=== PATIENT | female | born 1940 | race Caucasian/White ===

== ENCOUNTER 2016-07-10 05:28 | Emergency (ER) | payer MEDICARE ==
[~2016-07-10] VITALS: Ht 162.6 cm; Wt 62.0 kg
[~2016-07-10 05:28] MED LIST: AMLO10 PO; ARTI3.5O EACH EYE; ATEN25TA PO; Artificial Tears Opth Soln EACH EYE; COMMODE 3-IN-11 MIS; COUM2.5T PO; GETGO ROLLING W1 MI1; HYDR10TA23 PO; IBRU1CAP PO; LIDO5DIS35 TD; LIPI10TA PO; LISI40TA PO; NEUR300C PO; PANT40TA3 PO; SPIRCAP INH; SYMB160A INH; VENTAER INH; WHEEMIS3; shower chair
[2016-07-10 05:29] VITALS: BP 139/85; PULSE 108; RESP 16; TEMP 97.8; O2SAT 96
[2016-07-10] MEDS ORDERED: MORPHINE SULFATE 4 MG/ML INJ IV PUSH ONE (06:00)
[2016-07-10] MEDS ORDERED: ONDANSETRON HCL 4 MG/2 ML VIAL IV PUSH ONE (06:00)
[2016-07-10 06:27] LABS: BASOPHIL % 0.7 % (0.0-2.0); EOSINOPHIL # 0.1 TH/MM3 (0-0.4); EOSINOPHIL % 1.5 % (0.0-4.0); HEMATOCRIT 32.5 % (35.0-46.0); HEMO FLAGS DIFF FINAL; LYMPH % 9.1 % (9.0-44.0); LYMPHOCYTE # 0.6 TH/MM3 (1.0-4.8); MEAN CELL VOLUME 88.5 FL (80.0-100.0); MEAN CORPUSCULAR HEMOGLOBIN 29.1 PG (27.0-34.0); MEAN CORPUSCULAR HGB CONC 32.9 % (32.0-36.0); MONO % 12.5 % (0.0-8.0); NEUT % 76.2 % (16.0-70.0); PLATELET COUNT 154 TH/MM3 (150-450); RED BLOOD COUNT 3.68 MIL/MM3 (4.00-5.30); RED CELL DISTRIBUTION WIDTH 15.4 % (11.6-17.2); WHITE BLOOD COUNT 6.6 TH/MM3 (4.0-11.0)
[2016-07-10 06:28] LABS: PROTHROMBIN TIME - PATIENT 99.4 SEC (9.8-11.6)
--- NOTE | 2016-07-10 06:28 | PD ---
HPI Chief Complaint: Pain: Acute or Chronic Time Seen by Provider: 06:08 Travel History International Travel<30 days: No Contact w/Intl Traveler<30days: No Traveled to known affect area: No History of Present Illness HPI 75-year-old white female presents to emergency department accompanied by her for evaluation of lower back pain with radiation into her right leg. The patient just recently was discharged from [facility] after having a stroke involving left sided paralysis. She states that she feels she has caused her back pain by performing more vigorous physical therapy over the last few days. She denies any direct trauma. She states that she has not been ill in the last few days. She had recently suffered a stroke last month of her right middle cerebral artery. She is visiting from out of town. Patient states that she has had back pain with sciatica in the past. She denies any fever or chills. No nausea vomiting. No urinary symptoms. She does make note that her lips were dry and she noticed bleeding from her upper lip. She also has had easy bruising. She is currently taking Coumadin. PFSH Past Medical History Narrative Medical PVD, atrial fibrillation, lymphoma, DM, HDL, HTN, COPD, admitted 05/27/16 - for acute large MCA infarct Arthritis: Yes (generalized) Asthma: No Autoimmune Disease: No Heart Rhythm Problems: Yes (Afib) Cancer: Yes (non-hodgkins lymphoma) Cardiovascular Problems: Yes High Cholesterol: Yes Chemotherapy: Yes Chest Pain: No Congestive Heart Failure: No COPD: Yes Cerebrovascular Accident: Yes Diabetes: Yes Diminished Hearing: Yes ([place]) Endocrine: Yes Genitourinary: Yes Hypertension: Yes Immune Disorder: No Implanted Vascular Access Dvce: Yes (CHEMO PORT) Kidney Stones: No Musculoskeletal: Yes Neurologic: Yes Psychiatric: No Reproductive: No Respiratory: Yes Migraines: No Radiation Therapy: No Renal Failure: No Seizures: No Sleep Apnea: No Thyroid Disease: No Tetanus Vaccination: < 5 Years Menopausal: Yes Ovarian Cysts: Yes Past Surgical History Narrative Surgical PVD with stents in the lower legs Other Surgery: Yes (STENTS IN LEG) Social History Alcohol Use: Yes (OCCASIONALLY) Tobacco Use: No (QUIT 02/2009) Substance Use: No Allergies-Medications (Allergen,Severity, Reaction): Coded Allergies: *MDRO Multi-Drug Resistant Organism (Verified Adverse Reaction, Unknown, ) MRSA PCR screen POSITIVE - 05/27/16; MRSA (urine-06/11/16) Reported Meds & Prescriptions Reported Meds & Active Scripts Active Lortab (Hydrocodone-Acetaminophen) 5-325 Mg Tab 1 Tab PO Q6H PRN Macrobid (Nitrofurantoin Monoh/Nitrofur Macro) 100 Mg Cap 100 Mg PO BID Spiriva Handihaler (Tiotropium Inh) 18 Mcg Cap 18 Mcg INH DAILY 30 Days Pantoprazole (Pantoprazole Sodium) 40 Mg Tab 40 Mg PO DAILY 30 Days Lidoderm Patch 12 HR (Lidocaine) 5% Patch 1 Patch TD DAILY 30 Days Neurontin (Gabapentin) 300 Mg Cap 300 Mg PO HS 30 Days Symbicort Inh (Budesonide/Formoterol Fumarate) 160-4.5 Mcg/Act Aero 2 Puff INH BID 30 Days Lipitor (Atorvastatin Calcium) 10 Mg Tab 10 Mg PO HS 30 Days Norvasc (Amlodipine Besylate) 10 Mg Tab 10 Mg PO DAILY 30 Days Ventolin Hfa 18 GM Inh (Albuterol Sulfate) 90 Mcg/Act Aer 1 Puff INH Q4H PRN 30 Days [shower chair] Ea Wheelchair (Device) 1 Mis Mis 1 Ea .ROUTE DIRECTED Commode 3-in-1 (Device) 1 Mis Mis 1 Ea .ROUTE DIRECTED Walker Rolling/GetGo (Device) 1 Mis Mis 1 Ea .ROUTE DIRECTED Coumadin (Warfarin) 2.5 Mg Tab 2.5 Mg PO DAILY@16 Akwa Tears Opth Ointment (Artificial Tears) 2-15-83% Oint 1 Applic EACH EYE Q12HR Reported Imbruvica (Ibrutinib) 140 Mg Cap 1 Cap PO Review of Systems Except as stated in HPI: all other systems reviewed are Neg Physical Exam Narrative GENERAL: Well-developed, well-nourished in no apparent distress. Nontoxic appearing. HEAD: Normocephalic, atraumatic. EYES: Pupils equal round and reactive. Extraocular motions intact. Patient's conjunctiva are somewhat pale and I question some mild icterus. No injection or drainage. ENT: Nose clear. Throat without erythema, tonsillar hypertrophy or exudate. Uvula midline. Airway patent. NECK: Trachea midline. Supple, nontender, moves head freely. No central bony tenderness or spasm. CARDIOVASCULAR: Regular rate and rhythm without murmurs, gallops, or rubs. RESPIRATORY: Clear to auscultation. Breath sounds equal bilaterally. No wheezes , rales, or rhonchi. GASTROINTESTINAL: Abdomen soft, non-tender, nondistended. No hepato-splenomegaly , or palpable masses. No guarding. EXTREMITIES: No clubbing, cyanosis, or edema. No joint tenderness. BACK: Patient has tenderness in the right lower lumbar right sciatic notch area. Without deformity. No flank tenderness. No gross spasm. She has intact gross sensation. NEUROLOGICAL: Awake, alert and oriented x 3 .Cranial nerves grossly intact. Patient has limited mobility with the left upper arm as well as a left lower leg. Skin: The patient has multiple areas of bruising in various stages of healing. Patient does have slight jaundice appearing skin Data Data Last Documented VS Vital Signs Date Time Temp Pulse Resp B/P Pulse Ox O2 Delivery O2 Flow Rate FiO2 07/10/16 06:43 107 16 167/78 94 Room Air 07/10/16 05:29 97.8 Orders Complete Blood Count With Diff (07/10/16 05:54) Comprehensive Metabolic Panel (07/10/16 05:54) Prothrombin Time / Inr (Pt) (07/10/16 05:54) Ua Includes Microscopic (07/10/16 05:54) Iv Access Insert/Monitor (07/10/16 05:54) Ondansetron Inj (Zofran Inj) (07/10/16 06:00) Morphine Inj (Morphine Inj) (07/10/16 06:00) Spine, Lumbar - Ltd (Ap & Lat) (07/10/16 05:54) Ceftriaxone Inj (Rocephin Inj) (07/10/16 07:00) Labs Laboratory Tests Test 07/10/16 07/10/16 06:00 06:40 White Blood Count 6.6 TH/MM3 Red Blood Count 3.68 MIL/MM3 Hemoglobin 10.7 GM/DL Hematocrit 32.5 % Mean Corpuscular Volume 88.5 FL Mean Corpuscular Hemoglobin 29.1 PG Mean Corpuscular Hemoglobin 32.9 % Concent Red Cell Distribution Width 15.4 % Platelet Count 154 TH/MM3 Mean Platelet Volume 11.1 FL Neutrophils (%) (Auto) 76.2 % Lymphocytes (%) (Auto) 9.1 % Monocytes (%) (Auto) 12.5 % Eosinophils (%) (Auto) 1.5 % Basophils (%) (Auto) 0.7 % Neutrophils # (Auto) 5.0 TH/MM3 Lymphocytes # (Auto) 0.6 TH/MM3 Monocytes # (Auto) 0.8 TH/MM3 Eosinophils # (Auto) 0.1 TH/MM3 Basophils # (Auto) 0.0 TH/MM3 CBC Comment DIFF FINAL Differential Comment Prothrombin Time 99.4 SEC Prothromb Time International 8.2 RATIO Ratio Sodium Level 142 MEQ/L Potassium Level 4.5 MEQ/L Chloride Level 108 MEQ/L Carbon Dioxide Level 27.4 MEQ/L Anion Gap 7 MEQ/L Blood Urea Nitrogen 23 MG/DL Creatinine 1.52 MG/DL Estimat Glomerular Filtration 33 ML/MIN Rate Random Glucose 96 MG/DL Calcium Level 9.0 MG/DL Total Bilirubin 0.7 MG/DL Aspartate Amino Transf 28 U/L (AST/SGOT) Alanine Aminotransferase 30 U/L (ALT/SGPT) Alkaline Phosphatase 212 U/L Total Protein 7.0 GM/DL Albumin 3.5 GM/DL Urine Color YELLOW Urine Turbidity HAZY Urine pH 5.5 Urine Specific [place] 1.014 Urine Protein TRACE mg/dL Urine Glucose (UA) NEG mg/dL Urine Ketones NEG mg/dL Urine Occult Blood SMALL Urine Nitrite POS Urine Bilirubin NEG Urine Urobilinogen LESS THAN 2.0 MG/DL Urine Leukocyte Esterase MOD Urine RBC 6 /hpf Urine WBC 35 /hpf Urine Bacteria MANY /hpf Urine Mucus FEW /lpf MDM Medical Decision Making Medical Screen Exam Complete: Yes Emergency Medical Condition: Yes Medical Record Reviewed: Yes Interpretation(s) Lumbar spine: The patient has significant degenerative changes as well as scoliosis. She has prior grafting ever iliacs. Laboratory Tests Test 07/10/16 06:00 White Blood Count 6.6 TH/MM3 Red Blood Count 3.68 MIL/MM3 Hemoglobin 10.7 GM/DL Hematocrit 32.5 % Mean Corpuscular Volume 88.5 FL Mean Corpuscular Hemoglobin 29.1 PG Mean Corpuscular Hemoglobin 32.9 % Concent Red Cell Distribution Width 15.4 % Platelet Count 154 TH/MM3 Mean Platelet Volume 11.1 FL Neutrophils (%) (Auto) 76.2 % Lymphocytes (%) (Auto) 9.1 % Monocytes (%) (Auto) 12.5 % Eosinophils (%) (Auto) 1.5 % Basophils (%) (Auto) 0.7 % Neutrophils # (Auto) 5.0 TH/MM3 Lymphocytes # (Auto) 0.6 TH/MM3 Monocytes # (Auto) 0.8 TH/MM3 Eosinophils # (Auto) 0.1 TH/MM3 Basophils # (Auto) 0.0 TH/MM3 CBC Comment DIFF FINAL Differential Comment Prothrombin Time 99.4 SEC Prothromb Time International 8.2 RATIO Ratio Sodium Level 142 MEQ/L Potassium Level 4.5 MEQ/L Chloride Level 108 MEQ/L Carbon Dioxide Level 27.4 MEQ/L Anion Gap 7 MEQ/L Blood Urea Nitrogen 23 MG/DL Creatinine 1.52 MG/DL Estimat Glomerular Filtration 33 ML/MIN Rate Random Glucose 96 MG/DL Calcium Level 9.0 MG/DL Total Bilirubin 0.7 MG/DL Aspartate Amino Transf 28 U/L (AST/SGOT) Alanine Aminotransferase 30 U/L (ALT/SGPT) Alkaline Phosphatase 212 U/L Total Protein 7.0 GM/DL Albumin 3.5 GM/DL CBC & BMP Diagram 07/10/16 06:00 Differential Diagnosis MDM: High Differential diagnoses: AAA,Fracture, sprain, strain, HNP, nerve or vascular injury, pyelonephritis, spinal cord hematoma, hypercoagulable state, abnormal liver functions Narrative Course iv ACCESS IS OBTAINED. Routine laboratory tests sent for analysis. X-ray of the lumbar spine. The patient has had good response from 4 mg of morphine IV and 4 mg of Zofran IV. Patient's INR is 8.2. Remainder of the labs are pending. Diagnosis Primary Impression: Low back pain with right-sided sciatica Qualified Code: M54.41 - Acute right-sided low back pain with right-sided sciatica Additional Impressions: Warfarin-induced coagulopathy UTI (urinary tract infection) Qualified Code: N30.01 - Acute cystitis with hematuria Patient Instructions: Narcotic given in the ED, General Instructions Additional Instructions: Rest. Increase fluids. Macrobid and Lortab. Coumadin for 24 hours and get a repeat PT with INR Recheck with your doctor within the next 1-2 days. Med/Other Pt SpecificInfo: Prescription(s) given Scripts Hydrocodone-Acetaminophen (Lortab)5-325 Mg Tab1 Tab PO Q6H PRN (PAIN) #20 TAB Prov:Spenser Jacobs MD 07/10/16 Nitrofurantoin Monohydrate Macrocrystals (Macrobid)100 Mg Kun477 Mg PO BID #20 CAP Prov:Montserrat Keller MD 07/10/16 Disposition: 01 DISCHARGE HOME Condition: Stable Ramon Earl Jul 10, 2016 06:28
[2016-07-10 06:34] LABS: INTERNATIONAL NORMALIZED RATIO 8.2 RATIO
[2016-07-10 06:41] LABS: ALT (GPT) 30 U/L (10-53); ANION GAP 7 MEQ/L (5-15); AST (GOT) 28 U/L (15-37); BICARBONATE 27.4 MEQ/L (21.0-32.0); BLOOD UREA NITROGEN 23 MG/DL (7-18); CHLORIDE 108 MEQ/L (98-107); GLOMERULAR FILTRATION RATE 33 ML/MIN (>89); POTASSIUM 4.5 MEQ/L (3.5-5.1); SODIUM (NA) 142 MEQ/L (136-145)
[2016-07-10 06:43] VITALS: BP 167/78; PULSE 107; RESP 16; O2SAT 94
[2016-07-10 06:43] LABS: ALKALINE PHOSPHATASE 212 U/L (45-117); TOTAL BILIRUBIN ADULT 0.7 MG/DL (0.2-1.0)
--- NOTE | 2016-07-10 06:53 | RADRPT ---
EXAM DATE/TIME: 07/10/2016 06:24 [facility] COMPARISON: No previous studies available for comparison. INDICATIONS : Low back and bilateral leg pain for four days. MEDICAL HISTORY : Hypertension. Lymphoma. SURGICAL HISTORY : [place] ENCOUNTER: Initial ACUITY: 4 - 6 days PAIN SCORE: 10/10 LOCATION: Bilateral Back and leg FINDINGS: There is prominent right convex lumbar scoliosis. No evidence of spondylolisthesis. No fracture or de structive change is identified. Prominent degenerative changes are present with disc space narrowing most significantly at L3-4. Dense atherosclerotic calcification is noted and vascular stents are seen in the right iliac system. CONCLUSION: Scoliosis and prominent degenerative changes. No acute bony findings Denys Rebolledo MD on July 10, 2016 at 6:50 Board Certified Radiologist. This report was verified electronically.
[2016-07-10 06:57] LABS: BACTERIA, URINE MANY /hpf; BLOOD, URINE SMALL (NEG); GLUCOSE,URINE NEG (NEG); KETONE, URINE NEG (NEG); MUCUS URINE FEW /lpf (OCC); NITRITE,URINE POS (NEG); PH, URINE 5.5 (5.0-8.5); URINE COLOR YELLOW (YELLW/STRAW)
[2016-07-10] MEDS ORDERED: cefTRIAXone INJ 1,000 MG in SODIUM CHLORIDE 0.9% INJ 100 ML IV ONE (07:00)
[2016-07-10] MEDS ORDERED: HYDR-3533 PO ×2 (07:00→07:05)
[2016-07-10] MEDS ORDERED: MACR100C2 PO (07:00)
[2016-07-10] MEDS ORDERED: PHYTONADIONE 5 MG TAB PO ONE (07:15)
== END 2016-07-10 08:16 | disposition home or self-care (01) ==
LOC: NEPB 05:28
DX: M54.41 Lumbago with sciatica, right side (principal); Z79.01 Long term (current) use of anticoagulants; I48.91 Unspecified atrial fibrillation; E78.00 Pure hypercholesterolemia, unspecified; J44.9 Chronic obstructive pulmonary disease, unspecified; E11.9 Type 2 diabetes mellitus without complications; I10 Essential (primary) hypertension; Z86.73 Personal history of transient ischemic attack (TIA), and cerebral infarction without residual deficits
CPT/HCPCS: 72100; 80053; 81001; 85025; 85610; 96365; 96375; 99284; J0696; J2270; J2405

== ENCOUNTER 2016-07-14 10:38 | Emergency (ER) | payer MEDICARE ==
[~2016-07-14] VITALS: Ht 162.6 cm; Wt 61.0 kg
[~2016-07-14 10:38] MED LIST changes: -ATEN25TA PO; -Artificial Tears Opth Soln EACH EYE; +HYDR-3533 PO; -HYDR10TA23 PO; -LISI40TA PO; +MACR100C2 PO
[2016-07-14 10:42] VITALS: BP 117/67; PULSE 94; RESP 16; TEMP 98.4; O2SAT 98
--- NOTE | 2016-07-14 11:11 | PD ---
HPI Chief Complaint: Abnormal Results Time Seen by Provider: 10:57 Travel History International Travel<30 days: No Contact w/Intl Traveler<30days: No Traveled to known affect area: No History of Present Illness HPI The patient was seen and examined in the presence of the nurse. This patient was sent here from her neurologist office. Patient was seen here 4 days ago with right sided low back pain. She recently got out of rehabilitation or left- sided stroke with right sided weakness. She is on Coumadin and had an INR of 8.2 which was drawn 4 days ago. He sent her here to get a CT of the brain and abdomen and pelvis to rule out retroperitoneal hemorrhage and recheck INR. Patient's back pain is improved. She denies headache. No head injury. No alleviating factors. Duration of pain is one week PFSH Past Medical History Hx Anticoagulant Therapy: Yes Arthritis: Yes (generalized) Asthma: No Autoimmune Disease: No Heart Rhythm Problems: Yes (Afib) Cancer: Yes (non-hodgkins lymphoma) Cardiovascular Problems: Yes High Cholesterol: Yes Chemotherapy: Yes Chest Pain: No Congestive Heart Failure: No COPD: Yes Cerebrovascular Accident: Yes Diabetes: Yes Patient Takes Glucophage: No Diminished Hearing: Yes ([place]) Endocrine: Yes Gastrointestinal Disorders: No Genitourinary: Yes Headaches: No Hypertension: Yes Immune Disorder: No Implanted Vascular Access Dvce: Yes (CHEMO PORT) Kidney Stones: No Musculoskeletal: Yes Neurologic: Yes Psychiatric: No Reproductive: No Respiratory: Yes Migraines: No Radiation Therapy: No Renal Failure: No Seizures: No Sleep Apnea: No Thyroid Disease: No Tetanus Vaccination: Unknown ?: Not Menopausal: Yes Ovarian Cysts: Yes Past Surgical History Other Surgery: Yes (STENTS IN LEG) Social History Alcohol Use: Yes (OCCASIONALLY) Tobacco Use: No (QUIT 02/2009) Substance Use: No Allergies-Medications (Allergen,Severity, Reaction): Coded Allergies: *MDRO Multi-Drug Resistant Organism (Verified Adverse Reaction, Unknown, ) MRSA PCR screen POSITIVE - 05/27/16; MRSA (urine-06/11/16) Reported Meds & Prescriptions Reported Meds & Active Scripts Active Lortab (Hydrocodone-Acetaminophen) 5-325 Mg Tab 1 Tab PO Q6H PRN Macrobid (Nitrofurantoin Monoh/Nitrofur Macro) 100 Mg Cap 100 Mg PO BID Spiriva Handihaler (Tiotropium Inh) 18 Mcg Cap 18 Mcg INH DAILY 30 Days Pantoprazole (Pantoprazole Sodium) 40 Mg Tab 40 Mg PO DAILY 30 Days Neurontin (Gabapentin) 300 Mg Cap 300 Mg PO HS 30 Days Symbicort Inh (Budesonide/Formoterol Fumarate) 160-4.5 Mcg/Act Aero 2 Puff INH BID 30 Days Lipitor (Atorvastatin Calcium) 10 Mg Tab 10 Mg PO HS 30 Days Norvasc (Amlodipine Besylate) 10 Mg Tab 10 Mg PO DAILY 30 Days Ventolin Hfa 18 GM Inh (Albuterol Sulfate) 90 Mcg/Act Aer 1 Puff INH Q4H PRN 30 Days [shower chair] Ea Wheelchair (Device) 1 Mis Mis 1 Ea .ROUTE DIRECTED Commode 3-in-1 (Device) 1 Mis Mis 1 Ea .ROUTE DIRECTED Walker Rolling/GetGo (Device) 1 Mis Mis 1 Ea .ROUTE DIRECTED Coumadin (Warfarin) 2.5 Mg Tab 2.5 Mg PO DAILY@16 Akwa Tears Opth Ointment (Artificial Tears) 2-15-83% Oint 1 Applic EACH EYE Q12HR Reported Imbruvica (Ibrutinib) 140 Mg Cap 1 Cap PO Review of Systems General / Constitutional: No: Fever Eyes: No: Visual changes HENT: No: Headaches Cardiovascular: No: Chest Pain or Discomfort Respiratory: No: Shortness of Breath Gastrointestinal: No: Abdominal Pain Genitourinary: No: Dysuria Musculoskeletal: Positive: Weakness, Pain Skin: No Rash Neurologic: Positive: Weakness Psychiatric: No: Depression Endocrine: No: Polydipsia Hematologic/Lymphatic: No: Easy Bruising Physical Exam Narrative GENERAL: Pleasant elderly well-developed patient in no apparent distress. SKIN: Warm and dry. HEAD: Atraumatic. Normocephalic. EYES: Pupils equal and round. No scleral icterus. No injection or drainage. ENT: No nasal bleeding or discharge. Mucous membranes pink and moist. NECK: Trachea midline. No JVD. CARDIOVASCULAR: Regular rate and rhythm. No murmur appreciated. RESPIRATORY: No accessory muscle use. Clear to auscultation. Breath sounds equal bilaterally. GASTROINTESTINAL: Abdomen soft, non-tender, nondistended. Hepatic and splenic margins not palpable. MUSCULOSKELETAL: No obvious deformities. No clubbing. No cyanosis. No edema. NEUROLOGICAL: Awake and alert. No obvious cranial nerve deficits. Has some right sided weakness. Normal speech. PSYCHIATRIC: Appropriate mood and affect; insight and judgment normal. Data Data Last Documented VS Vital Signs Date Time Temp Pulse Resp B/P Pulse Ox O2 Delivery O2 Flow Rate FiO2 07/14/16 10:58 95 18 97 Room Air 07/14/16 10:42 98.4 117/67 Orders Iv Access Insert/Monitor (07/14/16 11:04) Complete Blood Count With Diff (07/14/16 11:04) Prothrombin Time / Inr (Pt) (07/14/16 11:04) Ct Brain W/O Iv Contrast(Rout) (07/14/16 ) Ct Abd/Pel W Iv Contrast(Rout) (07/14/16 ) Basic Metabolic Panel (Bmp) (07/14/16 11:04) Iodixanol 320 Inj (Rad Ct) (Visipaque 32 (07/14/16 12:39) Phytonadione (Mephyton) (07/14/16 13:30) Labs Laboratory Tests Test 07/14/16 11:25 White Blood Count 5.5 TH/MM3 Red Blood Count 3.14 MIL/MM3 Hemoglobin 9.3 GM/DL Hematocrit 28.1 % Mean Corpuscular Volume 89.4 FL Mean Corpuscular Hemoglobin 29.6 PG Mean Corpuscular Hemoglobin 33.1 % Concent Red Cell Distribution Width 14.6 % Platelet Count 153 TH/MM3 Mean Platelet Volume 10.8 FL Neutrophils (%) (Auto) 77.7 % Lymphocytes (%) (Auto) 6.2 % Monocytes (%) (Auto) 14.4 % Eosinophils (%) (Auto) 0.9 % Basophils (%) (Auto) 0.8 % Neutrophils # (Auto) 4.4 TH/MM3 Lymphocytes # (Auto) 0.3 TH/MM3 Monocytes # (Auto) 0.8 TH/MM3 Eosinophils # (Auto) 0.0 TH/MM3 Basophils # (Auto) 0.0 TH/MM3 CBC Comment DIFF FINAL Differential Comment Prothrombin Time 68.1 SEC Prothromb Time International 5.7 RATIO Ratio Sodium Level 145 MEQ/L Potassium Level 3.8 MEQ/L Chloride Level 111 MEQ/L Carbon Dioxide Level 25.9 MEQ/L Anion Gap 8 MEQ/L Blood Urea Nitrogen 28 MG/DL Creatinine 1.50 MG/DL Estimat Glomerular Filtration 34 ML/MIN Rate Random Glucose 135 MG/DL Calcium Level 8.7 MG/DL MDM Medical Decision Making Medical Screen Exam Complete: Yes Emergency Medical Condition: Yes Medical Record Reviewed: Yes Differential Diagnosis Super therapeutic INR, intracranial hemorrhage, anemia, sciatica Narrative Course I have reviewed the patient's electronic medical record. Reviewed the extensive workup from 4 days ago including lab studies and x-ray IV placed CBC shows some anemia with normal white count Metabolic profile shows creatinine of 1.5, chronic INR is 5.[address] shows evolving known stroke and suggested tiny amount of hemorrhage but not unexpected. I spoke with both radiologist Dr. William and neurologist Dr. Lainez. We reviewed these findings in detail. Dr. Lainez who sent the patient here looked at the CT scan and does not recommend FFP reversal. He recommends holding the Coumadin and giving him an oral dose of vitamin K now which we have done at his request. CT of abdomen and pelvis does not show any hemorrhage Dr. Lainez had wanted to rehospitalized and get her back into rehabilitation but the patient and the patient's did not want to do this. They have made arrangements to go back home to [place] tomorrow and they are to have an appointment with primary physician on Sunday and he is getting them into therapy. I specifically advise them to have the doctor check the INR on Sunday and they are not to take Coumadin until that time. understands that. Diagnosis Primary Impression: Warfarin-induced coagulopathy Additional Impression: Stroke Qualified Code: I63.511 - Cerebrovascular accident (CVA) due to occlusion of right middle cerebral artery Additional Instructions: Do not take Coumadin until your doctor rechecks INR Ask him to do this on Sunday when you are checked by him Do your best to avoid injury or fall as your blood is extra thin Med/Other Pt SpecificInfo: Other Disposition: 01 DISCHARGE HOME Condition: Stable Tono Junior MD Jul 14, 2016 11:11
[2016-07-14 11:37] LABS: AUTOMATED NEUTROPHIL # 4.4 TH/MM3 (1.8-7.7); BASOPHIL % 0.8 % (0.0-2.0); EOSINOPHIL % 0.9 % (0.0-4.0); HEMATOCRIT 28.1 % (35.0-46.0); HEMO FLAGS DIFF FINAL; LYMPH % 6.2 % (9.0-44.0); LYMPHOCYTE # 0.3 TH/MM3 (1.0-4.8); MEAN CELL VOLUME 89.4 FL (80.0-100.0); MEAN CORPUSCULAR HEMOGLOBIN 29.6 PG (27.0-34.0); MEAN CORPUSCULAR HGB CONC 33.1 % (32.0-36.0); MONO % 14.4 % (0.0-8.0); NEUT % 77.7 % (16.0-70.0); PLATELET COUNT 153 TH/MM3 (150-450); RED BLOOD COUNT 3.14 MIL/MM3 (4.00-5.30); RED CELL DISTRIBUTION WIDTH 14.6 % (11.6-17.2); WHITE BLOOD COUNT 5.5 TH/MM3 (4.0-11.0)
[2016-07-14 11:55] LABS: POTASSIUM 3.8 MEQ/L (3.5-5.1)
[2016-07-14 11:59] LABS: BICARBONATE 25.9 MEQ/L (21.0-32.0)
[2016-07-14 12:26] LABS: INTERNATIONAL NORMALIZED RATIO 5.7 RATIO; PROTHROMBIN TIME - PATIENT 68.1 SEC (9.8-11.6)
[2016-07-14] MEDS ORDERED: IODIXANOL 320 MG/ML 10 ML VIAL (for Rad CT) IV ONE (12:39)
--- NOTE | 2016-07-14 12:51 | RADHPO ---
EXAM DATE/TIME: 07/14/2016 12:21 [facility] COMPARISON: CT BRAIN W/O CONTRAST, May 27, 2016, 10:47. INDICATIONS: Recent stroke. General weakness. Evaluate for hemorrhage. RADIATION DOSE: 61.59 CTDIvol (mGy) MEDICAL HISTORY: Cerebrovascular disease. Diabetes mellitus type 2. Chronic obstructive pulmonary disease. Hypertensio n. Non-Hodgkin's lymphoma. SURGICAL HISTORY: None. ENCOUNTER: Initial ACUITY: 4 - 6 days PAIN SCALE: 0/10 LOCATION: Cranial TECHNIQUE: Multiple contiguous axial images were obtained of the head. Using automated exposure control and adj ustment of the mA and/or kV according to patient size, radiation dose was kept as low as reasonably a chievable to obtain optimal diagnostic quality images. FINDINGS: There is an evolving stroke in the right orbital frontal region. Very small amount of hemorrhage is seen in the deep thalamic region, not unexpected. The left hemisphere is unremarkable. Posterior fossa appears normal. CONCLUSION: Evolving stroke as described above. Arian William MD FACR on July 14, 2016 at 12:36 Board Certified Radiologist. This report was verified electronically.
--- NOTE | 2016-07-14 13:06 | RADHPO ---
EXAM DATE/TIME: 07/14/2016 12:28 [facility] COMPARISON: No previous studies available for comparison. INDICATIONS : Evaluate for retroperitoneal hemorrhage. General weakness. IV CONTRAST: 50 cc Visipaque (iodixanol) IV ORAL CONTRAST: No oral contrast ingested. RADIATION DOSE: 5.84 CTDIvol (mGy) MEDICAL HISTORY : Diabetes mellitus type 2. Chronic obstructive pulmonary disease. Cerebrovascular disease.Diabetes. N on-Hodgkins lymphoma. SURGICAL HISTORY : None. ENCOUNTER: Initial ACUITY: 3 days PAIN SCALE: 7/10 LOCATION: Diffuse abdomen. TECHNIQUE: Volumetric scanning of the abdomen and pelvis was performed. Using automated exposure control and ad justment of the mA and/or kV according to patient size, radiation dose was kept as low as reasonably achievable to obtain optimal diagnostic quality images. FINDINGS: LOWER LUNGS: The visualized lower lungs are clear. The heart is moderately enlarged. LIVER: Homogeneous density without lesion. There is no dilation of the biliary tree. No calcified gallston es. SPLEEN: Normal size without lesion. PANCREAS: Within normal limits. KIDNEYS: Kidneys are asymmetric in size with atrophic changes identified on the left. At least 3 simple cysts are identified in the left kidney. There is no evidence of hydronephrosis. ADRENAL GLANDS: Within normal limits. VASCULAR: Evaluate heavily calcified. Significant calcific atherosclerotic disease identified involving the aor tic branches. Calcified plaque is present throughout the proximal superior mesenteric artery. Iliac v essels are heavily calcified. Endovascular stents are identified in the right common and external nancy ac arteries. The left iliac vessels appear occluded. There is a right to left femoral-femoral bypass graft. BOWEL/MESENTERY: The stomach, small bowel, and colon demonstrate no acute abnormality. There is no free intraperitone al air or fluid. ABDOMINAL WALL: Within normal limits. RETROPERITONEUM: There is no evidence of retroperitoneal hemorrhage or hematoma. There are no suspicious masses. BLADDER: No wall thickening or mass. REPRODUCTIVE: Within normal limits. INGUINAL: There is no lymphadenopathy or hernia. MUSCULOSKELETAL: Degenerative changes are present throughout the lumbar spine. CONCLUSION: Advanced calcific atherosclerotic vascular disease. No evidence of retroperitoneal hematoma or acute process. Cardiomegaly. Ben Smith MD on July 14, 2016 at 12:45 Board Certified Radiologist. This report was verified electronically.
[2016-07-14] MEDS ORDERED: PHYTONADIONE 5 MG TAB PO ONE (13:30)
[2016-07-14 13:40] VITALS: BP 140/63
== END 2016-07-14 14:10 | disposition home or self-care (01) ==
LOC: PHED 10:38
DX: I63.511 Cerebral infarction due to unspecified occlusion or stenosis of right middle cerebral artery (principal); D68.8 Other specified coagulation defects; I48.91 Unspecified atrial fibrillation; E78.00 Pure hypercholesterolemia, unspecified; E11.9 Type 2 diabetes mellitus without complications
CPT/HCPCS: 70450; 74177; 80048; 85025; 85610; Q9967

== ENCOUNTER 2016-07-15 06:19 | Inpatient (IN) | payer MEDICARE ==
[2016-07-15] VITALS (7 sets, daily range): BP systolic 114–142; BP diastolic 57–78; PULSE 91–102; RESP 16–20; TEMP 97.8–99.4; O2SAT 94–98
[~2016-07-15 06:19] MED LIST changes: -LIDO5DIS35 TD
--- NOTE | 2016-07-15 07:10 | PD ---
HPI Chief Complaint: General Weakness Time Seen by Provider: 06:37 Travel History International Travel<30 days: No Contact w/Intl Traveler<30days: No Traveled to known affect area: No History of Present Illness HPI The patient is a 75-year-old female who was seen here yesterday because of right sided low back pain. She is on Coumadin and had an INR of 8.25 days ago and the INR was 5.[address] of the brain showed an evolving stroke in the right orbital frontal region and a very small amount of hemorrhage was seen in the deep thalamic region. The conclusion was evolving stroke. Dr. Dolly Live , who saw the patient in this emergency department discussed the patient with Dr. William from radiology and Dr. Negro Lainez from neurology and FFP was not recommended, only discontinuing the Coumadin. Admission was recommended but the patient wanted to go to [place] and left. This morning the patient cannot walk. After she left rehabilitation she could walk slightly but cannot walk at all today. She states the reason she cannot walk his pain below her right knee. It is difficult to determine whether this is pain or weakness on examination but the patient insists that his pain that she cannot use her right leg effectively. A CT scan of the abdomen/pelvis was done and showed no hemorrhage, specifically no retroperitoneal hemorrhage. PFSH Past Medical History Hx Anticoagulant Therapy: Yes Arthritis: Yes (generalized) Asthma: No Autoimmune Disease: No Heart Rhythm Problems: Yes (Afib) Cancer: Yes (non-hodgkins lymphoma) Cardiovascular Problems: Yes High Cholesterol: Yes Chemotherapy: Yes Chest Pain: No Congestive Heart Failure: No COPD: Yes Cerebrovascular Accident: Yes Diabetes: Yes Patient Takes Glucophage: No Diminished Hearing: Yes ([place]) Endocrine: Yes Gastrointestinal Disorders: No Genitourinary: Yes Headaches: No Hypertension: Yes Immune Disorder: No Implanted Vascular Access Dvce: Yes (CHEMO PORT) Kidney Stones: No Musculoskeletal: Yes Neurologic: Yes Psychiatric: No Reproductive: No Respiratory: Yes Migraines: No Radiation Therapy: No Renal Failure: No Seizures: No Sleep Apnea: No Thyroid Disease: No Tetanus Vaccination: Unknown Influenza Vaccination: Yes Menopausal: Yes Ovarian Cysts: Yes Past Surgical History Other Surgery: Yes (STENTS IN LEG) Social History Alcohol Use: Yes (OCCASIONALLY) Tobacco Use: No (QUIT 02/2009) Substance Use: No Allergies-Medications (Allergen,Severity, Reaction): Coded Allergies: *MDRO Multi-Drug Resistant Organism (Verified Adverse Reaction, Unknown, ) MRSA PCR screen POSITIVE - 05/27/16; MRSA (urine-06/11/16) Reported Meds & Prescriptions Reported Meds & Active Scripts Active Lortab (Hydrocodone-Acetaminophen) 5-325 Mg Tab 1 Tab PO Q6H PRN Macrobid (Nitrofurantoin Monoh/Nitrofur Macro) 100 Mg Cap 100 Mg PO BID Spiriva Handihaler (Tiotropium Inh) 18 Mcg Cap 18 Mcg INH DAILY 30 Days Pantoprazole (Pantoprazole Sodium) 40 Mg Tab 40 Mg PO DAILY 30 Days Neurontin (Gabapentin) 300 Mg Cap 300 Mg PO HS 30 Days Symbicort Inh (Budesonide/Formoterol Fumarate) 160-4.5 Mcg/Act Aero 2 Puff INH BID 30 Days Lipitor (Atorvastatin Calcium) 10 Mg Tab 10 Mg PO HS 30 Days Norvasc (Amlodipine Besylate) 10 Mg Tab 10 Mg PO DAILY 30 Days Ventolin Hfa 18 GM Inh (Albuterol Sulfate) 90 Mcg/Act Aer 1 Puff INH Q4H PRN 30 Days [shower chair] Ea Wheelchair (Device) 1 Mis Mis 1 Ea .ROUTE DIRECTED Commode 3-in-1 (Device) 1 Mis Mis 1 Ea .ROUTE DIRECTED Walker Rolling/GetGo (Device) 1 Mis Mis 1 Ea .ROUTE DIRECTED Coumadin (Warfarin) 2.5 Mg Tab 2.5 Mg PO DAILY@16 Akwa Tears Opth Ointment (Artificial Tears) 2-15-83% Oint 1 Applic EACH EYE Q12HR Reported Imbruvica (Ibrutinib) 140 Mg Cap 1 Cap PO Review of Systems Except as stated in HPI: all other systems reviewed are Neg Physical Exam Narrative GENERAL: The patient is alert but hard of hearing. She does cooperate but it is difficult to get her to perform strength testing. Her vital signs show pulse of 102 but otherwise normal. Repeat pulse is 96. SKIN: Warm and dry. Small Contusions are present on the right leg which appear a day or 2 old. No deformity is noted. HEAD: Atraumatic. Normocephalic. EYES: Pupils equal and round. No scleral icterus. No injection or drainage. ENT: No nasal bleeding or discharge. Mucous membranes pink and moist. NECK: Trachea midline. No JVD. CARDIOVASCULAR: Regular rate and rhythm. No murmur appreciated. RESPIRATORY: No accessory muscle use. Clear to auscultation. Breath sounds equal bilaterally. GASTROINTESTINAL: Abdomen soft, non-tender, nondistended. Hepatic and splenic margins not palpable. MUSCULOSKELETAL: No obvious deformities. No clubbing. No cyanosis. No edema. There is tenderness over the right leg, specifically below the right knee laterally. No deformity is noted. Strength testing is extremely difficult to perform but she may have some right sided weakness. NEUROLOGICAL: Awake and alert. No obvious cranial nerve deficits. Motor grossly within normal limits. Normal speech. PSYCHIATRIC: Appropriate mood and affect; insight and judgment normal. Data Data Last Documented VS Vital Signs Date Time Temp Pulse Resp B/P Pulse Ox O2 Delivery O2 Flow Rate FiO2 07/15/16 06:52 96 18 114/69 98 Room Air 07/15/16 06:29 98.6 MDM Medical Decision Making Medical Screen Exam Complete: Yes Emergency Medical Condition: Yes Medical Record Reviewed: Yes Differential Diagnosis Intracranial hemorrhage, evolving CVA, increasing right sided weakness with inability to ambulate, electrolyte disorder, persistent coagulopathy from Coumadin Narrative Course It is now 0709 and the patient is transferred to Dr. Borjas. Narciso Mahajan MD Jul 15, 2016 07:10
--- NOTE | 2016-07-15 07:41 | RADHPO ---
EXAM DATE/TIME: 07/15/2016 07:04 [facility] COMPARISON: No previous studies available for comparison. INDICATIONS : Right lower leg pain for 1 week, no known injury MEDICAL HISTORY : Stroke. SURGICAL HISTORY : None. ENCOUNTER: Initial ACUITY: 1 week PAIN SCORE: 10/10 LOCATION: Right lower leg FINDINGS: PA and lateral views of the chest demonstrate a normal-sized cardiac silhouette. There is no effusion , consolidation, or pneumothorax. The bones and soft tissues demonstrate no acute abnormality. CONCLUSION: No acute abnormality is identified. Denys Ramirez MD on July 15, 2016 at 7:37 Board Certified Radiologist. This report was verified electronically.
--- NOTE | 2016-07-15 07:50 | RADHPO ---
EXAM DATE/TIME: 07/15/2016 07:23 [facility] COMPARISON: MRI BRAIN W/O CONTRAST, May 27, 2016, 13:50. CT BRAIN W/O CONTRAST, May 27, 2016, 10:47. CT BRAIN W/O CONTRAST, July 14, 2016, 12:21. INDICATIONS : Left arm weakness and right leg pain for two days. RADIATION DOSE: 63.56 CTDIvol (mGy) MEDICAL HISTORY : Stroke. Lymphoma. diabetes, hypertension SURGICAL HISTORY : None. ENCOUNTER: Initial ACUITY: 2 days PAIN SCALE: 8/10 LOCATION: Right leg TECHNIQUE: Multiple contiguous axial images were obtained of the head. Using automated exposure control and adj ustment of the mA and/or kV according to patient size, radiation dose was kept as low as reasonably a chievable to obtain optimal diagnostic quality images. FINDINGS: CEREBRUM: Ventricles are normal in size. There is mild generalized cerebral atrophy. There is low-attenuation i n the right frontal mid and low convexity and in the right basal ganglia consistent with edema relate d to a recent ischemic event. The appearance is stable compared to yesterday's examination. There is a 5 mm area of high density in the right basal ganglia that may represent blood products. This findin g is stable. There is stable 2 mm [id number] midline shift. Calcification is present within the in tracranial internal carotid arteries. POSTERIOR FOSSA: The cerebellum and brainstem demonstrate no acute finding. The 4th ventricle is midline. The cerebe llopontine angle is unremarkable. EXTRACRANIAL: Visualized sinuses are clear. SKULL: The calvaria is intact. No evidence of skull fracture. CONCLUSION: Stable head CT without change since yesterday's examination. There is abnormal edema in the right fro ntal lobe and basal ganglia related to evolving infarct. There is a stable 5 mm area of high density in the right basal ganglia that may represent a small area of hemorrhage. There is stable 2 mm of rig ht-to-left midline shift. Denys Ramirez MD on July 15, 2016 at 7:43 Board Certified Radiologist. This report was verified electronically.
[2016-07-15 08:18] LABS: AUTOMATED NEUTROPHIL # 5.4 TH/MM3 (1.8-7.7); BASOPHIL % 0.7 % (0.0-2.0); EOSINOPHIL # 0.1 TH/MM3 (0-0.4); HEMATOCRIT 30.6 % (35.0-46.0); LYMPH % 6.6 % (9.0-44.0); LYMPHOCYTE # 0.5 TH/MM3 (1.0-4.8); MEAN CELL VOLUME 89.6 FL (80.0-100.0); MEAN CORPUSCULAR HGB CONC 32.4 % (32.0-36.0); MONO % 12.8 % (0.0-8.0); NEUT % 78.9 % (16.0-70.0); PLATELET COUNT 181 TH/MM3 (150-450); RED BLOOD COUNT 3.42 MIL/MM3 (4.00-5.30); RED CELL DISTRIBUTION WIDTH 15.2 % (11.6-17.2); WHITE BLOOD COUNT 6.9 TH/MM3 (4.0-11.0)
[2016-07-15 08:19] LABS: HEMO FLAGS DIFF FINAL
[2016-07-15 08:26] LABS: POTASSIUM 4.1 MEQ/L (3.5-5.1)
[2016-07-15 08:28] LABS: INTERNATIONAL NORMALIZED RATIO 3.2 RATIO; PROTHROMBIN TIME - PATIENT 36.8 SEC (9.8-11.6)
[2016-07-15 08:29] LABS: BICARBONATE 24.2 MEQ/L (21.0-32.0)
[2016-07-15] MEDS ORDERED: MAGNESIUM HYDROXIDE SUSP 30 ML CUP PO PRN (09:30)
[2016-07-15] MEDS ORDERED: SODIUM CHLORIDE 0.9% FLUSH 5 ML FLUSH FLUSH PRN (09:30)
[2016-07-15] MEDS ORDERED: TEMAZEPAM 15 MG CAP PO PRN (09:30)
[2016-07-15] MEDS ORDERED: NALOXONE HCL 0.4 MG/ML AMP IV PRN (09:30)
[2016-07-15] MEDS ORDERED: ONDANSETRON HCL 4 MG/2 ML VIAL IVP PRN (09:30)
[2016-07-15] MEDS ORDERED: SODIUM CHLOR 0.9% 1000 ML INJ 1,000 ML IV SCH (09:30)
[2016-07-15] MEDS ORDERED: ALBUTEROL SULFATE 90 MCG/ACT HFA 8 GM INHALER INH PRN (09:30)
[2016-07-15] MEDS ORDERED: ACETAMINOPHEN 325 MG TAB PO PRN (09:30)
--- NOTE | 2016-07-15 13:27 | PD.CONS ---
History of Present Illness Service Neurology Consult Requested By er Reason for Consult stroke Primary Care Physician Non-Staff History of Present Illness 75-year-old female old rt mca stroke with left sided paresis, who is admitted for right sided low back pain. She is on Coumadin and had an INR of 8.25 days ago and the INR was 5.7 yesterday. pain in her rt hip and radiates down to her rt knee. having difficultly ambulating. has been receiving outpatient therapy. no abdominal pain. florencio po. ct brain stable with mild ich in rt bg region. A CT scan of the abdomen/pelvis was done and showed no hemorrhage, specifically no retroperitoneal hemorrhage. PFSH Past Medical History Hx Anticoagulant Therapy: Yes Arthritis: Yes (generalized) Asthma: No Autoimmune Disease: No Heart Rhythm Problems: Yes (Afib) Cancer: Yes (non-hodgkins lymphoma) Cardiovascular Problems: Yes High Cholesterol: Yes Chemotherapy: Yes Chest Pain: No Congestive Heart Failure: No COPD: Yes Cerebrovascular Accident: Yes Diabetes: Yes Patient Takes Glucophage: No Diminished Hearing: Yes ([place]) Endocrine: Yes Gastrointestinal Disorders: No Genitourinary: Yes Headaches: No Hypertension: Yes Immune Disorder: No Implanted Vascular Access Dvce: Yes (CHEMO PORT) Kidney Stones: No Musculoskeletal: Yes Neurologic: Yes Psychiatric: No Reproductive: No Respiratory: Yes Migraines: No Radiation Therapy: No Renal Failure: No Seizures: No Sleep Apnea: No Thyroid Disease: No Tetanus Vaccination: Unknown Influenza Vaccination: Yes Menopausal: Yes Ovarian Cysts: Yes Past Surgical History Other Surgery: Yes (STENTS IN LEG) Social History Alcohol Use: Yes (OCCASIONALLY) Tobacco Use: No (QUIT 02/2009) Substance Use: No Allergies-Medications (Allergen,Severity, Reaction): Coded Allergies: *MDRO Multi-Drug Resistant Organism (Verified Adverse Reaction, Unknown, ) MRSA PCR screen POSITIVE - 05/27/16; MRSA (urine-06/11/16) Review of Systems Except as stated in HPI: all other systems reviewed are Neg Review of Systems All other ROS: ROS reviewed as documented in chart Past Family Social History Allergies: Coded Allergies: *MDRO Multi-Drug Resistant Organism (Verified Adverse Reaction, Unknown, ) MRSA PCR screen POSITIVE - 05/27/16; MRSA (urine-06/11/16) Active Ordered Medications Current Medications Medications (Trade) Dose Ordered Sig/[place] Route Start Time Stop Time Status Last Admin (NS Flush) 2 ml UNSCH PRN FLUSH 07/15/16 09:30 (NS Flush) 2 ml BID FLUSH 07/15/16 21:00 (Tylenol) 650 mg Q4H PRN PO 07/15/16 09:30 (Zofran Inj) 4 mg Q6H PRN IVP 07/15/16 09:30 (Milk Of Magnesia Liq) 30 ml Q12H PRN PO 07/15/16 09:30 (Restoril) 15 mg HS PRN PO 07/15/16 09:30 Naloxone HCl 0.4 mg 0.4 mg UNSCH PRN IV 07/15/16 09:30 (NS 1000 ml Inj) 1,000 ml @ 42 mls/hr [id number] IV 07/15/16 09:30 07/16/16 09:18 07/15/16 09:30 (Proair Hfa Inh) 1 puff Q4H PRN INH 07/15/16 09:30 (Norvasc) 10 mg DAILY PO 07/16/16 09:00 (Lacrilube Opht Oint) 1 applic Q12HR EACH EYE 07/15/16 21:00 (Lipitor) 10 mg HS PO 07/15/16 21:00 (Symbicort 160-4.5 Inh) 2 puff BID INH 07/15/16 21:00 (Neurontin) 300 mg HS PO 07/15/16 21:00 ([place]ley 5-325 Mg) 1 tab Q6H PRN PO 07/15/16 09:30 (Protonix) 40 mg DAILY PO 07/16/16 09:00 (Spiriva Inh) 18 mcg DAILY INH 07/16/16 09:00 Exam I&O / VS Vital Signs Date Time Temp Pulse Resp B/P Pulse Ox O2 Delivery O2 Flow Rate FiO2 07/15/16 09:51 100 18 126/78 98 Room Air 07/15/16 07:58 98 18 138/57 94 Room Air 07/15/16 06:52 96 18 114/69 98 Room Air 07/15/16 06:46 18 98 Room Air 07/15/16 06:29 98.6 102 20 132/66 98 Respiratory: Lungs CTA, Non-labored respirations, BS equal, Symmetrical expansion Cardiology: Normal rate, Regular Rhythm Musculoskeletal: Tenderness, Other Neurologic: Alert Psychiatric: Cooperative Exam Comments alert, ox 3. follows, eomi, vff grossly full, left lower facial weakness, left spastic hemiparesis u>le. slr negative. mild patchy bruising in buttocks rt greater then left. able to lift both le to gravity for >5 secs, reduced pin left arm, no clonus, planter flexor, no spinal tenderness, mild rt buttocks area tenderness, mild trevor spasticity, no clonus, planter flexor Review/Management Diagnosis/Plan: (1) Muscle strain of right gluteal region Plan: possible gluteal strain vs rt sciatica vs rt sciatic notch mass r/o hematoma recs mri lspine and rt hip/glut flexeril prn steroid trial stretching p.t. eval follow exam (2) Warfarin-induced coagulopathy (3) Stroke Plan: resume coumadin once inr <1.[address] brain negative for ich (4) Atrial fibrillation, chronic Problem Qualifiers (1) Muscle strain of right gluteal region: Qualified Code: S76.311A - Muscle strain of right gluteal region, initial encounter (2) Stroke: Qualified Code: I63.511 - Cerebrovascular accident (CVA) due to occlusion of right middle cerebral artery Kendrick Snow MD Jul 15, 2016 13:27
[2016-07-15] MEDS ORDERED: PILL SPLITTER OTHER PRN (14:00)
--- NOTE | 2016-07-15 14:14 | PD ---
Data Data Last Documented VS Vital Signs Date Time Temp Pulse Resp B/P Pulse Ox O2 Delivery O2 Flow Rate FiO2 07/15/16 07:58 98 18 138/57 94 Room Air 07/15/16 06:29 98.6 Orders Complete Blood Count With Diff (07/15/16 06:57) Basic Metabolic Panel (Bmp) (07/15/16 06:57) Prothrombin Time / Inr (Pt) (07/15/16 06:57) Ct Brain W/O Iv Contrast(Rout) (07/15/16 06:57) Tibia/Fibula (Ap/Lat) (07/15/16 06:57) Admit Order (Ed Use Only) (07/15/16 09:13) Labs Laboratory Tests Test 07/15/16 07:50 White Blood Count 6.9 TH/MM3 Red Blood Count 3.42 MIL/MM3 Hemoglobin 9.9 GM/DL Hematocrit 30.6 % Mean Corpuscular Volume 89.6 FL Mean Corpuscular Hemoglobin 29.0 PG Mean Corpuscular Hemoglobin 32.4 % Concent Red Cell Distribution Width 15.2 % Platelet Count 181 TH/MM3 Mean Platelet Volume 11.9 FL Neutrophils (%) (Auto) 78.9 % Lymphocytes (%) (Auto) 6.6 % Monocytes (%) (Auto) 12.8 % Eosinophils (%) (Auto) 1.0 % Basophils (%) (Auto) 0.7 % Neutrophils # (Auto) 5.4 TH/MM3 Lymphocytes # (Auto) 0.5 TH/MM3 Monocytes # (Auto) 0.9 TH/MM3 Eosinophils # (Auto) 0.1 TH/MM3 Basophils # (Auto) 0.0 TH/MM3 CBC Comment DIFF FINAL Differential Comment Prothrombin Time 36.8 SEC Prothromb Time International 3.2 RATIO Ratio Sodium Level 143 MEQ/L Potassium Level 4.1 MEQ/L Chloride Level 109 MEQ/L Carbon Dioxide Level 24.2 MEQ/L Anion Gap 10 MEQ/L Blood Urea Nitrogen 25 MG/DL Creatinine 1.40 MG/DL Estimat Glomerular Filtration 37 ML/MIN Rate Random Glucose 104 MG/DL Calcium Level 8.9 MG/DL [facility] Supervised Visit with SENG: No Narrative Course This patient was signed out to me by Dr. Mahajan. She has a history of recent stroke in May and over the past week has gotten increasingly weak with difficulty walking. CT of the head was obtained and was similar to her head CT yesterday. She does have some evidence of hemorrhage in the setting of a supratherapeutic INR by her Coumadin was held yesterday, which is unchanged on imaging. She will be admitted for physical therapy evaluation and likely rehabilitation placement. Diagnosis Primary Impression: Weakness Admitting Information Admitting Physician Requests: Observation Amada Borjas MD Jul 15, 2016 14:14
[2016-07-15] MEDS: CYCLOBENZAPRINE HCL 10 MG TAB PO PRN (16:21)
[2016-07-15] MEDS: ACETAMINOPHEN/HYDROcodone 325 MG/5 MG TAB PO PRN (16:21)
[2016-07-15] MEDS: predniSONE 20 MG TAB PO SCH (16:21)
--- NOTE | 2016-07-15 18:23 | HHI.HP ---
[facility] Service [facility] Primary Care Physician Non-Staff Admission Diagnosis weakness Diagnoses: Travel History International Travel<30 Days: No Contact w/Intl Traveler <30 Da: No Traveled to Known Affected Are: No History of Present Illness This is a pleasant 75-year-old female who is here snowboarding with her . They're from [place]. Unfortunately last month she suffered a right MCA stroke with left-sided weakness. She has atrial fibrillation. She was placed on Coumadin. This is being managed by DR. Lainez. She was discharged from [facility] inpatient rehabilitation about a week ago and at that time she could walk with her 's help as per the . However the patient has been developing pain in the back of her right thigh as well as her right lower back which is typical for sciatica pain. She's gotten weaker over the past week. Her notes that also her speech seems to have gotten a little bit worse over the past week. Her INR was supratherapeutic this week but trending down. She was sent to the ER last night by Dr. Lainez. Head CT revealed the evolving stroke with abnormal edema in the right frontal lobe and basal ganglia with a stable 5 mm area of high density in the right basal ganglia that may represent a small area of hemorrhage with a stable 2 mm right- to-left midline shift. Her INR in the emergency department was 3.2. She received vitamin K. She has had no new neurologic changes. She has been seen by Dr. Ramon nguyen of neurology and it is recommended that she have a repeat head CT in the morning and that her Coumadin can be resumed when INR is less than 1.8. MRI of the lumbar spine has been ordered for evaluation of the sciatica. On PT evaluation today she was weak and unable to stand. The patient and her are aware she will likely need more physical therapy. Unfortunately they had planned on returning back to their home state of [place] within the next several days. The patient normally takes oxycodone for pain but states that it can make her somewhat sleepy at times. Review of Systems Constitutional: DENIES: Fever, Chills Ears, nose, mouth, throat: DENIES: Throat pain, Hoarseness Respiratory: DENIES: Cough, Shortness of breath Cardiovascular: DENIES: Dyspnea on Exertion, Lower Extremity Edema Gastrointestinal: DENIES: Nausea, Vomiting Genitourinary: DENIES: Urinary frequency, Dysuria Musculoskeletal: COMPLAINS OF: Back pain, DENIES: Joint Swelling Integumentary: DENIES: Pruritus, Rash Hematologic/lymphatic: DENIES: Lymphadenopathy Neurologic: COMPLAINS OF: Localized weakness, Speech Problems, Poor Balance Psychiatric: DENIES: Anxiety, Confusion Past Family Social History Past Medical History Atrial fibrillation Chronic kidney disease stage III Chronic anemia R MCA CVA 05/2016 Hypertension Mantle cell lymphoma COPD Hyperlipidemia COPD Past Surgical History port Reported Medications Allergies Coded Allergies Type Severity Reaction Last Updated Verified *MDRO Multi-Drug Resistant Organism Adverse Reaction Unknown 07/15/16 Yes Active Scripts Medications Dose Route/Sig Days Date Category Lortab (Hydrocodone-Acetaminophen) 5-325 Mg Tab 1 Tab PO Q6H PRN 07/10/16 Rx Macrobid (Nitrofurantoin Monoh/Nitrofur Macro) 100 Mg Cap 100 Mg PO BID 07/10/16 Rx Spiriva Handihaler (Tiotropium Inh) 18 Mcg Cap 18 Mcg INH DAILY 30 06/30/16 Rx Pantoprazole (Pantoprazole Sodium) 40 Mg Tab 40 Mg PO DAILY 30 06/30/16 Rx Neurontin (Gabapentin) 300 Mg Cap 300 Mg PO HS 30 06/30/16 Rx Symbicort Inh (Budesonide/Formoterol Fumarate) 160-4.5 Mcg/Act Aero 2 Puff INH BID 30 06/30/16 Rx Lipitor (Atorvastatin Calcium) 10 Mg Tab 10 Mg PO HS 30 06/30/16 Rx Norvasc (Amlodipine Besylate) 10 Mg Tab 10 Mg PO DAILY 30 06/30/16 Rx Ventolin Hfa 18 GM Inh (Albuterol Sulfate) 90 Mcg/Act Aer 1 Puff INH Q4H PRN 30 06/30/16 Rx [shower chair] Ea 06/22/16 Rx Wheelchair (Device) 1 Mis Mis 1 Ea .ROUTE DIRECTED 06/22/16 Rx Commode 3-in-1 (Device) 1 Mis Mis 1 Ea .ROUTE DIRECTED 06/22/16 Rx Walker Rolling/GetGo (Device) 1 Mis Mis 1 Ea .ROUTE DIRECTED 06/22/16 Rx Imbruvica (Ibrutinib) 140 Mg Cap 1 Cap PO 06/06/16 Reported Coumadin (Warfarin) 2.5 Mg Tab 2.5 Mg PO DAILY@16 06/05/16 Rx Akwa Tears Opth Ointment (Artificial Tears) 2-15-83% Oint 1 Applic EACH EYE Q12HR 06/05/16 Rx Allergies: Coded Allergies: *MDRO Multi-Drug Resistant Organism (Verified Adverse Reaction, Unknown, ) MRSA PCR screen POSITIVE - 05/27/16; MRSA (urine-06/11/16) Family History Reviewed and noncontributory Social History History of tobacco use Physical Exam Vital Signs Vital Signs Date Time Temp Pulse Resp B/P Pulse Ox O2 Delivery O2 Flow Rate FiO2 07/15/16 15:00 99.4 102 16 133/74 95 07/15/16 09:51 100 18 126/78 98 Room Air 07/15/16 07:58 98 18 138/57 94 Room Air 07/15/16 06:52 96 18 114/69 98 Room Air 07/15/16 06:46 18 98 Room Air 07/15/16 06:29 98.6 102 20 132/66 98 Physical Exam GENERAL: Well-nourished, well-developed patient. Very pleasant. Appears older than stated chronologic age. SKIN: Warm and dry. HEAD: Normocephalic. EYES: No scleral icterus. No injection or drainage. NECK: Supple, trachea midline. No JVD or lymphadenopathy. CARDIOVASCULAR: Regular rate and rhythm without murmurs, gallops, or rubs. RESPIRATORY: Breath sounds equal bilaterally. No accessory muscle use. GASTROINTESTINAL: Abdomen soft, non-tender, nondistended. EXTREMITIES: No cyanosis, or edema. NEUROLOGICAL: Awake, alert, and oriented x 3. Some apparent receptive aphasia and difficulty following commands. She does have a left facial droop, and 2 out of 5 strength in the left arm, 4-5 in the left lower extremity. Effort for the right upper extremity is somewhat limited as she states she is tired. 5 out of 5 in the right lower extremity. Laboratory Laboratory Tests Test 07/15/16 07:50 White Blood Count 6.9 Red Blood Count 3.42 Hemoglobin 9.9 Hematocrit 30.6 Mean Corpuscular Volume 89.6 Mean Corpuscular Hemoglobin 29.0 Mean Corpuscular Hemoglobin 32.4 Concent Red Cell Distribution Width 15.2 Platelet Count 181 Mean Platelet Volume 11.9 Neutrophils (%) (Auto) 78.9 Lymphocytes (%) (Auto) 6.6 Monocytes (%) (Auto) 12.8 Eosinophils (%) (Auto) 1.0 Basophils (%) (Auto) 0.7 Neutrophils # (Auto) 5.4 Lymphocytes # (Auto) 0.5 Monocytes # (Auto) 0.9 Eosinophils # (Auto) 0.1 Basophils # (Auto) 0.0 CBC Comment DIFF FINAL Differential Comment Prothrombin Time 36.8 Prothromb Time International 3.2 Ratio Sodium Level 143 Potassium Level 4.1 Chloride Level 109 Carbon Dioxide Level 24.2 Anion Gap 10 Blood Urea Nitrogen 25 Creatinine 1.40 Estimat Glomerular Filtration 37 Rate Random Glucose 104 Calcium Level 8.9 Result Diagram: 07/15/16 0750 07/15/16 0750 Imaging Last Impressions Tibia/Fibula X-Ray 07/15/16 0657 Signed Impressions: Service Date/Time: Friday, July 15, 2016 07:04 - CONCLUSION: No acute abnormality is identified. Denys Ramirez MD Head CT 07/15/16 0657 Signed Impressions: Service Date/Time: Friday, July 15, 2016 07:23 - CONCLUSION: Stable head CT without change since yesterday's examination. There is abnormal edema in the right frontal lobe and basal ganglia related to evolving infarct. There is a stable 5 mm area of high density in the right basal ganglia that may represent a small area of hemorrhage. There is stable 2 mm of [id number] midline shift. Denys Ramirez MD Assessment and Plan Assessment and Plan -Right lower back pain with sciatica. Follow-up MRI lumbar spine. Pain control. Continue physical therapy. Continue Neurontin. I will titrate this up. -Stable evolving embolic large right MCA stroke in the right frontal lobe with a stable amount of 2 mm right midline shift, possible small but stable area of hemorrhage 5 mm in the right basal ganglia. INR was 3.2 admission she has received vitamin K and has been seen by neurology with recommendations for repeat head CT in the morning. Coumadin can be resumed when INR is less than 1.8. She still has residual left arm weakness. -Atrial fibrillation - DC Norvasc and start metoprolol instead. Anticoagulation as above. Chronic kidney disease stage III - stable. Chronic anemia - stable. Hypertension - DC Norvasc and start metoprolol. Mantle cell lymphoma - was reinitiated on imbruvica as per her oncologist in [place] recommendation ( see Dr. Hernández's H&P) despite increased risk of bleed with Coumadin. Apparently there is a high rate of relapse if patients are taken off this medication for mental cell lymphoma. COPD - continue Spiriva and Ventolin. Hyperlipidemia SCDs Ariadna Fitch MD Jul 15, 2016 18:23
[2016-07-15] MEDS: BUDESONIDE-FORMOTEROL 160/4.5 MCG INHALER INH SCH (20:46)
[2016-07-15] MEDS: ARTIFICIAL TEARS OPTH OINT 3.5 APPLIC/3.5 GM TUBO EACH EYE SCH (20:46)
[2016-07-15] MEDS: SODIUM CHLORIDE 0.9% FLUSH 5 ML FLUSH FLUSH SCH (20:46)
[2016-07-15] MEDS: GABAPENTIN 300 MG CAP PO SCH (20:46)
[2016-07-15] MEDS: ATORVASTATIN 10 MG TAB PO SCH (20:46)
[2016-07-16] VITALS: BP 146/84; PULSE 102; RESP 20; TEMP 97.1; O2SAT 95
[2016-07-16 07:31] LABS: AUTOMATED NEUTROPHIL # 2.8 TH/MM3 (1.8-7.7); BASOPHIL % 0.2 % (0.0-2.0); EOSINOPHIL % 0.2 % (0.0-4.0); HEMATOCRIT 29.1 % (35.0-46.0); LYMPH % 9.7 % (9.0-44.0); LYMPHOCYTE # 0.4 TH/MM3 (1.0-4.8); MEAN CELL VOLUME 90.3 FL (80.0-100.0); MEAN CORPUSCULAR HEMOGLOBIN 30.1 PG (27.0-34.0); MEAN CORPUSCULAR HGB CONC 33.3 % (32.0-36.0); MONO % 12.6 % (0.0-8.0); NEUT % 77.3 % (16.0-70.0); PLATELET COUNT 139 TH/MM3 (150-450); RED BLOOD COUNT 3.23 MIL/MM3 (4.00-5.30); RED CELL DISTRIBUTION WIDTH 14.9 % (11.6-17.2); WHITE BLOOD COUNT 3.7 TH/MM3 (4.0-11.0)
[2016-07-16 07:32] LABS: HEMO FLAGS DIFF FINAL
[2016-07-16 07:37] LABS: BLOOD, URINE SMALL (NEG); GLUCOSE,URINE NEG (NEG); KETONE, URINE NEG (NEG); NITRITE,URINE NEG (NEG)
[2016-07-16 07:45] LABS: BICARBONATE 25.1 MEQ/L (21.0-32.0)
[2016-07-16 07:51] LABS: COMMENT (UR) CULT NOT INDICATED; CULTURE IF INDICATED CULT NOT INDICATED; METHOD OF COLLECTION CLEAN CATCH; SQUAMOUS EPITHELIAL CELL URINE 0-5 /hpf (0-5); URINE COLOR YELLOW (YELLW/STRAW)
[2016-07-16 08:00] VITALS: BP 134/69; PULSE 93; RESP 20; TEMP 97.1; O2SAT 99
[2016-07-16 08:12] LABS: INTERNATIONAL NORMALIZED RATIO 2.3 RATIO; PROTHROMBIN TIME - PATIENT 26.8 SEC (9.8-11.6)
--- NOTE | 2016-07-16 08:21 | RADHPO ---
EXAM DATE/TIME: 07/16/2016 07:59 [facility] COMPARISON: CT BRAIN W/O CONTRAST, July 15, 2016, 7:23. INDICATIONS : Left arm weakness and right leg pain for three days. RADIATION DOSE: 61.05 CTDIvol (mGy) MEDICAL HISTORY : Stroke. Lymphoma. diabetes, hypertension SURGICAL HISTORY : None. ENCOUNTER: Subsequent ACUITY: 3 days PAIN SCALE: 7/10 LOCATION: Right leg TECHNIQUE: Multiple contiguous axial images were obtained of the head. Using automated exposure control and adj ustment of the mA and/or kV according to patient size, radiation dose was kept as low as reasonably a chievable to obtain optimal diagnostic quality images. FINDINGS: There is stable low density in the right basal ganglia and right frontal lobe with stable 2 mm of rig ht-to-left midline shift. The previous described area of high density in the right basal ganglia is s table. Otherwise, no definite acute blood products are identified. Ventricles are normal in size. The re is mild cerebral atrophy. No mass is visualized. CONCLUSION: Stable head CT. There is unchanged edema in the right frontal lobe and basal ganglia representing kirt nge related to evolving infarct. The small focus of high density in the right basal ganglia is stable and could represent normal brain parenchyma versus subtle blood products. There is also unchanged 2 mm of pdeca-nj-euyv midline shift. Denys Ramirez MD on July 16, 2016 at 8:17 Board Certified Radiologist. This report was verified electronically.
[2016-07-16] MEDS: TIOTROPIUM BROMIDE 18 MCG INH INH SCH (09:00)
[2016-07-16] MEDS: SODIUM CHLORIDE 0.9% FLUSH 5 ML FLUSH FLUSH SCH ×2 (09:00→21:46)
--- NOTE | 2016-07-16 10:27 | RADHPO ---
EXAM DATE/TIME: 07/16/2016 10:10 [facility] COMPARISON: No previous studies available for comparison. No prior x-ray has been obtained. INDICATIONS : Weakness. MEDICAL HISTORY : Arthritis. Cerebrovascular disease. Lymphoma. SURGICAL HISTORY : Stent placement. ENCOUNTER: [facility] ACUITY: 1 month PAIN SCORE: 2/10 LOCATION: Right Paraspinal TECHNIQUE: Multiplanar, multisequence MRI examination was performed without contrast. FINDINGS: BONE/CARTILAGE: Bone marrow signal is homogeneous. There is thinning of the articular cartilage in the right hip join t. MUSCLES/TENDONS: All of the visualized muscles demonstrate no edema or acute finding. MISCELLANEOUS: No joint effusion. There is right hip joint space narrowing. Visualized surrounding structures demons trate no acute finding. CONCLUSION: Mild right hip joint osteoarthritis. No acute finding is identified. Denys Ramirez MD on July 16, 2016 at 10:22 Board Certified Radiologist. This report was verified electronically.
[2016-07-16] MEDS: PANTOPRAZOLE SOD 40 MG DELAYED RELEASE TAB PO SCH (10:50)
[2016-07-16] MEDS: ARTIFICIAL TEARS OPTH OINT 3.5 APPLIC/3.5 GM TUBO EACH EYE SCH ×2 (10:50→21:46)
[2016-07-16] MEDS: BUDESONIDE-FORMOTEROL 160/4.5 MCG INHALER INH SCH ×2 (10:50→21:46)
[2016-07-16] MEDS: predniSONE 20 MG TAB PO SCH (10:51)
[2016-07-16] MEDS: CYCLOBENZAPRINE HCL 10 MG TAB PO PRN (10:51)
[2016-07-16] MEDS: ACETAMINOPHEN/HYDROcodone 325 MG/5 MG TAB PO PRN (10:52)
--- NOTE | 2016-07-16 11:19 | RADHPO ---
EXAM DATE/TIME: 07/16/2016 10:32 [facility] COMPARISON: SPINE LUMBAR LTD (AP & LAT), July 10, 2016, 6:24. INDICATIONS : Weakness. MEDICAL HISTORY : Lymphoma. Arthritis. Cerebrovascular disease. SURGICAL HISTORY : Stent placement. ENCOUNTER: [facility] ACUITY: 1 month PAIN SCORE: 2/10 LOCATION: Right Paraspinal TECHNIQUE: Multiplanar multisequence MRI of the lumbar spine was performed without contrast. FINDINGS: The most caudal appearing lumbar vertebra is numbered as L5. VERTEBRAE: Homogeneous signal. There is dextroscoliosis. No anterolisthesis or retrolisthesis is present. CONUS: Normal level and configuration. T12-L1: No disc herniation, canal stenosis, or neural foraminal stenosis is identified. L1-L2: There is mild facet hypertrophy. No disc herniation, canal stenosis, or neural foraminal stenosis is identified. L2-L3: There is disc desiccation with a diffuse disc bulge and mild to moderate facet and ligamentum flavum hypertrophy. Lateral recesses are mildly effaced. No neural foraminal narrowing is present.L3-L4: Decreased disc height with disc desiccation and a moderate diffuse disc bulge. There is moderate face t and ligamentum flavum hypertrophy with mild spinal canal stenosis and moderate left neural foramina l stenosis. L4-L5: There is disc desiccation with a moderate diffuse disc bulge and moderate facet and ligamentum flavum hypertrophy. Mild spinal canal stenosis is present and there is mild neural foraminal narrowing bila terally. L5-S1: There is disc desiccation with a diffuse disc bulge and a right foraminal disc herniation versus oste ophyte. There is moderate facet hypertrophy. No spinal canal stenosis is present. There is severe rig ht neural foraminal narrowing with the abnormal material in the right neural foramen abutting the exi ting right L5 nerve root. The visualized paraspinous structures demonstrate no acute finding. CONCLUSION: Dextroscoliosis with multilevel degenerative change. There is severe right neural foraminal stenosis at L5-S1 secondary to either a right foraminal osteophyte or disc herniation. At L4-L5 there is mild spinal canal stenosis. Please see above for detailed description of each level. Denys Ramirez MD on July 16, 2016 at 11:14 Board Certified Radiologist. This report was verified electronically.
[2016-07-16] MEDS: IMBRUVICA 140 MG PO SCH (11:36)
[2016-07-16 12:00] VITALS: BP 116/68; PULSE 87; RESP 20; TEMP 97.3; O2SAT 99
[2016-07-16 16:00] VITALS: BP 126/75; PULSE 89; RESP 20; TEMP 98.7; O2SAT 96
--- NOTE | 2016-07-16 17:07 | HHI.PR ---
Subjective Remarks Still having right lower back and right posterior thigh pain however somewhat improved. No new neurologic symptoms. Objective Vitals Vital Signs Date Time Temp Pulse Resp B/P Pulse Ox O2 Delivery O2 Flow Rate FiO2 07/16/16 12:00 97.3 87 20 116/68 99 07/16/16 08:00 97.1 93 20 134/69 99 07/16/16 04:00 07/16/16 00:00 97.1 102 20 146/84 95 07/15/16 20:00 97.8 93 19 132/62 96 I/O 07/15/16 07/15/16 07/15/16 07/16/16 07/16/16 07/16/16 07:00 15:00 23:00 07:00 15:00 23:00 Intake Total 446 ml 445 ml Balance 446 ml 445 ml IV Total 446 ml 445 ml # Voids 4 # Bowel Movements 0 Result Diagram: 07/16/16 0635 07/16/16 0635 Objective Remarks GENERAL: Well-nourished, well-developed patient. Very pleasant. Appears older than stated chronologic age. SKIN: Warm and dry. HEAD: Normocephalic. EYES: No scleral icterus. No injection or drainage. NECK: Supple, trachea midline. No JVD or lymphadenopathy. CARDIOVASCULAR: Regular rate and rhythm without murmurs, gallops, or rubs. RESPIRATORY: Breath sounds equal bilaterally. No accessory muscle use. GASTROINTESTINAL: Abdomen soft, non-tender, nondistended. EXTREMITIES: No cyanosis, or edema. NEUROLOGICAL: Awake, alert. A/P Assessment and Plan -Right lower back pain with sciatica. MRI lumbar spine showing pinched L5-S1 nerve root. Follow-up neurology recommendations. Pain control. Continue physical therapy. Increase Neurontin. -Stable evolving embolic large right MCA stroke in the right frontal lobe with a stable amount of 2 mm right midline shift, possible small but stable area of hemorrhage 5 mm in the right basal ganglia. Stable repeat head CT today. INR was 3.2 admission she has received vitamin K and has been seen by neurology with recommendations for repeat head CT in the morning. Coumadin can be resumed when INR is less than 1.8. She still has residual left arm weakness. -Atrial fibrillation -continue metoprolol instead. Anticoagulation as above. Chronic kidney disease stage III - stable. Chronic anemia - stable. Hypertension -continue metoprolol. Mantle cell lymphoma with pancytopenia- was reinitiated on imbruvica as per her oncologist in [place] recommendation ( see Dr. Hernández's H&P) despite increased risk of bleed with Coumadin. Apparently there is a high rate of relapse if patients are taken off this medication for mental cell lymphoma. COPD - continue Spiriva and Ventolin. Hyperlipidemia SCDs Discharge Planning half-way facility versus inpatient rehabilitation Ariadna Fitch MD Jul 16, 2016 17:07
[2016-07-16 20:00] VITALS: BP 126/67; PULSE 83; RESP 16; TEMP 97; O2SAT 97
[2016-07-16] MEDS: GABAPENTIN 300 MG CAP PO SCH (21:46)
[2016-07-16] MEDS: ATORVASTATIN 10 MG TAB PO SCH (21:47)
[2016-07-17] VITALS: BP 121/76; PULSE 78; RESP 16; TEMP 96.7; O2SAT 97
[2016-07-17 07:16] LABS: INTERNATIONAL NORMALIZED RATIO 2.4 RATIO; PROTHROMBIN TIME - PATIENT 27.6 SEC (9.8-11.6)
[2016-07-17 08:00] VITALS: BP 149/80; PULSE 95; RESP 18; TEMP 98.2; O2SAT 95
[2016-07-17] MEDS: PANTOPRAZOLE SOD 40 MG DELAYED RELEASE TAB PO SCH (08:53)
[2016-07-17] MEDS: ACETAMINOPHEN/HYDROcodone 325 MG/5 MG TAB PO PRN (08:54)
[2016-07-17] MEDS: IMBRUVICA 140 MG PO SCH (08:56)
[2016-07-17] MEDS: BUDESONIDE-FORMOTEROL 160/4.5 MCG INHALER INH SCH ×2 (08:57→22:15)
[2016-07-17] MEDS: SODIUM CHLORIDE 0.9% FLUSH 5 ML FLUSH FLUSH SCH ×2 (08:58→22:15)
[2016-07-17] MEDS: TIOTROPIUM BROMIDE 18 MCG INH INH SCH (09:00)
[2016-07-17] MEDS: predniSONE 20 MG TAB PO SCH (09:01)
[2016-07-17] MEDS: ARTIFICIAL TEARS OPTH OINT 3.5 APPLIC/3.5 GM TUBO EACH EYE SCH ×2 (10:07→21:00)
[2016-07-17 12:00] VITALS: BP 139/72; PULSE 95; RESP 18; TEMP 98.2; O2SAT 95
--- NOTE | 2016-07-17 14:54 | HHI.PR ---
Subjective Remarks Patient seen and examined by Dr. Fitch today. Patient was sitting in a chair eating lunch. She states that she is feeling a lot better. Discussion was done with and patient at bedside. They're inquiring about when she can be able to travel safely back to [place]. Objective Vitals Vital Signs Date Time Temp Pulse Resp B/P Pulse Ox O2 Delivery O2 Flow Rate FiO2 07/17/16 12:00 98.2 95 18 139/72 95 07/17/16 08:00 98.2 95 18 149/80 95 07/17/16 00:00 96.7 78 16 121/76 97 07/16/16 20:00 97.0 83 16 126/67 97 07/16/16 16:00 98.7 89 20 126/75 96 I/O 07/16/16 07/16/16 07/16/16 07/17/16 07/17/16 07/17/16 07:00 15:00 23:00 07:00 15:00 23:00 Intake Total 445 ml 675 ml 510 ml 180 ml Output Total 500 ml Balance 445 ml 675 ml 10 ml 180 ml Intake Oral 675 ml 510 ml 180 ml IV Total 445 ml Output Urine Total 500 ml # Voids 4 2 0 1 # Bowel Movements 0 0 0 Result Diagram: 07/16/16 0635 07/16/16 0635 Objective Remarks GENERAL: Well-nourished, well-developed patient. Very pleasant. Appears older than stated chronologic age. SKIN: Warm and dry. HEAD: Normocephalic. EYES: No scleral icterus. No injection or drainage. NECK: Supple, trachea midline. No JVD or lymphadenopathy. CARDIOVASCULAR: Regular rate and rhythm without murmurs, gallops, or rubs. RESPIRATORY: Breath sounds equal bilaterally. No accessory muscle use. GASTROINTESTINAL: Abdomen soft, non-tender, nondistended. EXTREMITIES: No cyanosis, or edema. NEUROLOGICAL: Awake, alert. Urinary Catheter: No Vascular Central Line Catheter: No A/P Assessment and Plan -Right lower back pain with sciatica. Improving. MRI lumbar spine showing pinched L5-S1 nerve root compounded by her previous stroke recently difficult for ambulation. neurology recommendations include continuation of steroids, most relaxers for the sciatica on the right side. Indicates possible need for rehabilitation placement.. Pain control. Continue physical therapy. Increased Neurontin. -Stable evolving embolic large right MCA stroke in the right frontal lobe with a stable amount of 2 mm right midline shift, possible small but stable area of hemorrhage 5 mm in the right basal ganglia. Stable repeat head CT today. INR was 3.2 admission she has received vitamin K and has been seen by neurology with recommendations for repeat head CT in the morning. Coumadin can be resumed when INR is less than 1.8. She still has residual left arm weakness. -Atrial fibrillation -continue metoprolol instead. Anticoagulation as above. Chronic kidney disease stage III - stable. Chronic anemia - stable. Hypertension -continue metoprolol. Mantle cell lymphoma with pancytopenia- was reinitiated on imbruvica as per her oncologist in [place] recommendation ( see Dr. Hernández's H&P) despite increased risk of bleed with Coumadin. Apparently there is a high rate of relapse if patients are taken off this medication for mental cell lymphoma. COPD - continue Spiriva and Ventolin. Hyperlipidemia SCDs Written by Tono Mahajan PA-C, acting as scribe for Dr. Fitch on 07/17/16 at 1325. The documentation accurately reflects the work and decisions performed face-to- face by Dr. Fitch on 07/17/16 at 1325. Tono Mahajan Jul 17, 2016 14:54
[2016-07-17 16:00] VITALS: BP 136/76; PULSE 95; RESP 18; TEMP 98.2; O2SAT 95
[2016-07-17 20:00] VITALS: BP 149/69; PULSE 90; RESP 20; TEMP 96; O2SAT 99
[2016-07-17] MEDS: ATORVASTATIN 10 MG TAB PO SCH (22:15)
[2016-07-17] MEDS: GABAPENTIN 300 MG CAP PO SCH (22:15)
[2016-07-18] VITALS: BP 138/69; PULSE 101; RESP 20; TEMP 96; O2SAT 97
[2016-07-18 04:00] VITALS: BP 155/88; PULSE 104; RESP 20; TEMP 96; O2SAT 98
[2016-07-18 06:50] LABS: INTERNATIONAL NORMALIZED RATIO 2.3 RATIO; PROTHROMBIN TIME - PATIENT 26.5 SEC (9.8-11.6)
[2016-07-18 08:00] VITALS: BP 160/83; PULSE 94; RESP 18; TEMP 97.5; O2SAT 94
[2016-07-18] MEDS: ARTIFICIAL TEARS OPTH OINT 3.5 APPLIC/3.5 GM TUBO EACH EYE SCH ×2 (09:00→22:25)
[2016-07-18] MEDS: PANTOPRAZOLE SOD 40 MG DELAYED RELEASE TAB PO SCH (09:30)
[2016-07-18] MEDS: predniSONE 20 MG TAB PO SCH (09:30)
[2016-07-18] MEDS: IMBRUVICA 140 MG PO SCH (09:30)
[2016-07-18] MEDS: BUDESONIDE-FORMOTEROL 160/4.5 MCG INHALER INH SCH ×2 (09:30→22:25)
[2016-07-18] MEDS: TIOTROPIUM BROMIDE 18 MCG INH INH SCH (09:30)
[2016-07-18] MEDS: SODIUM CHLORIDE 0.9% FLUSH 5 ML FLUSH FLUSH SCH ×2 (09:31→22:24)
[2016-07-18 12:00] VITALS: BP 145/72; PULSE 78; RESP 18; TEMP 98; O2SAT 96
--- NOTE | 2016-07-18 13:27 | HHI.PR ---
Subjective Remarks Follow-up for sciatica. Patient states she is good if she has a cushion in regards to pain. Her states she has been sitting in the chair since 8 AM. Objective Vitals Vital Signs Date Time Temp Pulse Resp B/P Pulse Ox O2 Delivery O2 Flow Rate FiO2 07/18/16 12:00 98.0 78 18 145/72 96 07/18/16 08:00 97.5 94 18 160/83 94 07/18/16 04:00 96.0 104 20 155/88 98 07/18/16 00:00 96.0 101 20 138/69 97 07/17/16 20:00 96.0 90 20 149/69 99 07/17/16 16:00 98.2 95 18 136/76 95 I/O 07/17/16 07/17/16 07/17/16 07/18/16 07/18/16 07/18/16 07:00 15:00 23:00 07:00 15:00 23:00 Intake Total 180 ml 960 ml 1850 ml Output Total 1 ml Balance 180 ml 959 ml 1850 ml Intake Oral 180 ml 960 ml 540 ml IV Total 1310 ml Stool Total 1 ml # Voids 1 4 1 1 # Bowel Movements 0 1 1 Result Diagram: 07/16/1635 07/16/1635 Objective Remarks GENERAL: Pleasant elderly well-developed well-nourished patient in no apparent distress sitting in recliner eating lunch. SKIN: Warm and dry. HEAD: Atraumatic. Normocephalic. CARDIOVASCULAR: Regular rate and rhythm. RESPIRATORY: No accessory muscle use. Clear to auscultation. Breath sounds equal bilaterally. MUSCULOSKELETAL: No lower extremity edema bilaterally. NEUROLOGICAL: Awake and alert. Five out of 5 media/instructional designer strength bilaterally. Normal speech. PSYCHIATRIC: Appropriate mood and affect; insight and judgment normal. Urinary Catheter: No Vascular Central Line Catheter: No A/P Assessment and Plan -Right lower back pain with sciatica. Improving. MRI lumbar spine showing pinched L5-S1 nerve root compounded by her previous stroke recently difficult for ambulation. neurology recommendations include continuation of steroids, most relaxers for the sciatica on the right side. Pain control. Continue physical and occupational therapy. Increased Neurontin. -Stable evolving embolic large right MCA stroke in the right frontal lobe with a stable amount of 2 mm right midline shift, possible small but stable area of hemorrhage 5 mm in the right basal ganglia. Stable repeat head CT today. INR was 3.2 admission she has received vitamin K and has been seen by neurology recommended repeat head CT which is stable. Coumadin can be resumed when INR is less than 1.8. She still has residual left arm weakness. -Atrial fibrillation -continue metoprolol instead. Anticoagulation as above. -Chronic kidney disease stage III - stable. -Chronic anemia - stable. -Hypertension -continue metoprolol. -Mantle cell lymphoma with pancytopenia- was reinitiated on imbruvica as per her oncologist in [place] recommendation (see Dr. Hernández's H&P) despite increased risk of bleed with Coumadin. Apparently there is a high rate of relapse if patients are taken off this medication for mental cell lymphoma. -COPD - continue Spiriva and Ventolin. -Hyperlipidemia -DVT prophylaxis: SCDs Written by Lilliana Oliver PA-C, acting as scribe for Dr. Fitch on 07/18/16 at 1310. The documentation accurately reflects the work and decisions performed face-to- face by Dr. Fitch on 07/18/16 at 1310. Discharge Planning OT and PT recommend rehabilitation, but [facility] is out of network. Patient is from out of state and the patient would not be able to safely sit in a car for long car trip to [place]. Will try to arrange home health care nursing and PT as an option if unable to place in SNF. states patient has DME at home. Lilliana Oliver Jul 18, 2016 13:27
--- NOTE | 2016-07-18 14:11 | HHI.FF ---
Face to Face Verification Diagnosis: (1) Low back pain with right-sided sciatica (2) Stroke (3) Warfarin anticoagulation (4) Atrial fibrillation, chronic (5) HTN (hypertension) (6) CKD (chronic kidney disease) (7) Anemia Physical Therapy Order: Evaluate and Treat, Improve ambulation, Strength and gait training Occupational Therapy Order: Evaluate and Treat, Improve ADL, Gross motor coordination, Fine motor coordination Speech Therapy Order: To Improve: Cognitive skills Home Health Nursing Order: Medical education Signs/symptoms of disease process Medication education-adverse effect Nursing assessment with vital signs Instructions: daily INR; Resume coumadin once inr <1.8 I have seen patient Vanna Rodriguez on 07/18/16. My clinical findings support the need for the requested home health care services because: Ltd mobility - disease progression High risk of falls I certify that my clinical findings support that this patient is homebound because: Unsteady gait/balance Unsafe to leave home unassisted Lilliana Oliver Jul 18, 2016 14:11
[2016-07-18] MEDS: ACETAMINOPHEN/HYDROcodone 325 MG/5 MG TAB PO PRN ×2 (15:49→22:25)
[2016-07-18 16:00] VITALS: BP 128/86; PULSE 88; RESP 17; TEMP 98; O2SAT 95
[2016-07-18 20:00] VITALS: BP 129/66; PULSE 75; RESP 18; TEMP 96.4; O2SAT 97
[2016-07-18] MEDS: GABAPENTIN 300 MG CAP PO SCH (22:23)
[2016-07-18] MEDS: ATORVASTATIN 10 MG TAB PO SCH (22:24)
[2016-07-19] VITALS: BP 126/72; PULSE 78; RESP 18; TEMP 96.2; O2SAT 98
[2016-07-19 06:33] LABS: HEMATOCRIT 29.4 % (35.0-46.0); MEAN CELL VOLUME 89.3 FL (80.0-100.0); MEAN CORPUSCULAR HEMOGLOBIN 28.9 PG (27.0-34.0); MEAN CORPUSCULAR HGB CONC 32.3 % (32.0-36.0); PLATELET COUNT 144 TH/MM3 (150-450); RED BLOOD COUNT 3.29 MIL/MM3 (4.00-5.30); RED CELL DISTRIBUTION WIDTH 14.8 % (11.6-17.2); REVIEW FLAG FINAL; WHITE BLOOD COUNT 7.8 TH/MM3 (4.0-11.0)
[2016-07-19 06:42] LABS: POTASSIUM 4.1 MEQ/L (3.5-5.1)
[2016-07-19 06:44] LABS: INTERNATIONAL NORMALIZED RATIO 1.7 RATIO; PROTHROMBIN TIME - PATIENT 19.8 SEC (9.8-11.6)
[2016-07-19 06:48] LABS: BICARBONATE 25.6 MEQ/L (21.0-32.0)
[2016-07-19 08:49] VITALS: BP 134/78; PULSE 88; RESP 17; TEMP 97.6; O2SAT 96
[2016-07-19] MEDS: IMBRUVICA 140 MG PO SCH (09:32)
[2016-07-19] MEDS: ACETAMINOPHEN/HYDROcodone 325 MG/5 MG TAB PO PRN (09:33)
[2016-07-19] MEDS: TIOTROPIUM BROMIDE 18 MCG INH INH SCH (09:34)
[2016-07-19] MEDS: ARTIFICIAL TEARS OPTH OINT 3.5 APPLIC/3.5 GM TUBO EACH EYE SCH (09:34)
[2016-07-19] MEDS: SODIUM CHLORIDE 0.9% FLUSH 5 ML FLUSH FLUSH SCH (09:34)
[2016-07-19] MEDS: PANTOPRAZOLE SOD 40 MG DELAYED RELEASE TAB PO SCH (09:34)
[2016-07-19] MEDS: BUDESONIDE-FORMOTEROL 160/4.5 MCG INHALER INH SCH (09:34)
[2016-07-19 12:00] VITALS: BP 133/85; PULSE 79; RESP 18; TEMP 98; O2SAT 95
--- NOTE | 2016-07-19 12:39 | HHI.DCPOC ---
Discharge Care Plan Diagnosis: (1) Stroke (2) Low back pain with right-sided sciatica (3) Weakness (4) CKD (chronic kidney disease) Goals to Promote Your Health * To prevent worsening of your condition and complications * To maintain your health at the optimal level Directions to Meet Your Goals Take your medications as prescribed Follow your dietary instruction Follow activity as directed Keep your appointments as scheduled Take your immunizations and boosters as scheduled If your symptoms worsen call your PCP, if no PCP go to Urgent Care Center or Emergency Room Smoking is Dangerous to Your Health. Avoid second hand smoke Call the 24-hour hour crisis hotline for domestic abuse at Lilliana Oliver Jul 19, 2016 12:39
[2016-07-19] MEDS ORDERED: WARF4TAB52 PO (12:56)
--- NOTE | 2016-07-19 13:26 | HHI.DS ---
Discharge Summary Admission Date Jul 16, 2016 at 15:51 Discharge Date: Jul 19, 2016 Admitting Diagnosis weakness (1) Acute ischemic left MCA stroke ICD Code: I63.512 (2) Warfarin-induced coagulopathy ICD Code: T45.511A (3) Low back pain with right-sided sciatica ICD Code: M54.41 Procedures none Brief History - From Admission This is a pleasant 75-year-old female who is here snowboarding with her . They're from [place]. Unfortunately last month she suffered a right MCA stroke with left-sided weakness. She has atrial fibrillation. She was placed on Coumadin. This is being managed by DR. Lainez. She was discharged from [facility] about a week ago and at that time she could walk with her 's help as per the . However the patient has been developing pain in the back of her right thigh as well as her right lower back which is typical for sciatica pain. She's gotten weaker over the past week. Her notes that also her speech seems to have gotten a little bit worse over the past week. Her INR was supratherapeutic this week but trending down. She was sent to the ER last night by Dr. Lainez. Head CT revealed the evolving stroke with abnormal edema in the right frontal lobe and basal ganglia with a stable 5 mm area of high density in the right basal ganglia that may represent a small area of hemorrhage with a stable 2 mm right- to-left midline shift. Her INR in the emergency department was 3.2. She received vitamin K. She has had no new neurologic changes. She has been seen by Dr. Ramon nguyen of neurology and it is recommended that she have a repeat head CT in the morning and that her Coumadin can be resumed when INR is less than 1.8. MRI of the lumbar spine has been ordered for evaluation of the sciatica. On PT evaluation today she was weak and unable to stand. The patient and her are aware she will likely need more physical therapy. Unfortunately they had planned on returning back to their home state of [place] within the next several days. The patient normally takes oxycodone for pain but states that it can make her somewhat sleepy at times. CBC/BMP: 07/19/16 0530 07/19/16 0530 Significant Findings Laboratory Tests Test 07/17/16 07/18/16 07/19/16 05:55 05:30 05:30 Prothrombin Time 27.6 SEC 26.5 SEC 19.8 SEC (9.8-11.6) (9.8-11.6) (9.8-11.6) Red Blood Count 3.29 MIL/MM3 (4.00-5.30) Hemoglobin 9.5 GM/DL (11.6-15.3) Hematocrit 29.4 % (35.0-46.0) Platelet Count 144 TH/MM3 (150-450) Blood Urea Nitrogen 31 MG/DL (7-18) Creatinine 1.20 MG/DL (0.50-1.00) Estimat Glomerular Filtration 44 ML/MIN (>89) Rate Random Glucose 116 MG/DL (74-106) Imaging Last Impressions Head CT 07/16/16 0600 Signed Impressions: Service Date/Time: Saturday, July 16, 2016 07:59 - CONCLUSION: Stable head CT. There is unchanged edema in the right frontal lobe and basal ganglia representing change related to evolving infarct. The small focus of high density in the right basal ganglia is stable and could represent normal brain parenchyma versus subtle blood products. There is also unchanged 2 mm of ghiuk-eg-sfha midline shift. Denys Ramirez MD Lumbar Spine MRI 07/16/16 0000 Signed Impressions: Service Date/Time: Saturday, July 16, 2016 10:32 - CONCLUSION: Dextroscoliosis with multilevel degenerative change. There is severe right neural foraminal stenosis at L5-S1 secondary to either a right foraminal osteophyte or disc herniation. At L4-L5 there is mild spinal canal stenosis. Please see above for detailed description of each level. Denys Ramirez MD Hip MRI 07/16/16 0000 Signed Impressions: Service Date/Time: Saturday, July 16, 2016 10:10 - CONCLUSION: Mild right hip joint osteoarthritis. No acute finding is identified. Denys Ramirez MD Tibia/Fibula X-Ray 07/15/16 0657 Signed Impressions: Service Date/Time: Friday, July 15, 2016 07:04 - CONCLUSION: No acute abnormality is identified. Denys Ramirez MD PE at Discharge GENERAL: Pleasant elderly well-developed well-nourished patient in no apparent distress sitting in recliner eating lunch. SKIN: Warm and dry. HEAD: Atraumatic. Normocephalic. CARDIOVASCULAR: Regular rate and rhythm. RESPIRATORY: No accessory muscle use. Clear to auscultation. Breath sounds equal bilaterally. MUSCULOSKELETAL: No lower extremity edema bilaterally. NEUROLOGICAL: Awake and alert. Five out of 5 network associate strength bilaterally. Normal speech. PSYCHIATRIC: Appropriate mood and affect; insight and judgment normal. Hospital Course patient was admitted, head CT remained stable, imaging showed the results above. Pt improved with PT to the point that she could be discharged home with [facility]. I discussed her case in detail with Dr. Lainez as well as with her PCP Dr. Morelos who will be following her INR closely. It is noted that the patient and her plan to return to [facility] (drive home) when patient improved. I recommended to the that he have a [facility] family member fly down to help him with the journey north. I also stressed the importance of INR monitoring to patient's and her PCP - given that she had coagulopathy prior to admission and she appears to need a very small dose of coumadin. She was discharged on 1 mg coumadin daily. Pt Condition on Discharge: Stable Discharge Disposition: Disch w/ Home Health Serv Discharge Time: > 30 minutes Discharge Instructions DIET: Follow Instructions for: Heart Healthy Diet, Gastroesophageal Reflux Activities you can perform: See Additionl Instruction Activities to Avoid: Driving Other Activity Instructions: use walker when ambulating with assistance New Medications: Warfarin (Warfarin) 1 Mg Tab 1 MG PO DAILY Stroke Prevention #30 Ref 0 TAB Continued Medications: Albuterol 18 GM Inh (Ventolin Hfa 18 GM Inh) 90 Mcg/Act Aer 1 PUFF INH Q4H PRN SHORTNESS OF BREATH Days 30 INHALER Amlodipine (Norvasc) 10 Mg Tab 10 MG PO DAILY Days 30 TAB Artificial Tear Opth Ointment (Akwa Tears Opth Ointment) 2-15-83% Oint 1 APPLIC EACH EYE Q12HR #1 TUBE Atorvastatin (Lipitor) 10 Mg Tab 10 MG PO HS Days 30 TAB Budesonide-Formoterol Inh (Symbicort Inh) 160-4.5 Mcg/Act Aero 2 PUFF INH BID Days 30 INHALER Gabapentin (Neurontin) 300 Mg Cap 300 MG PO HS Days 30 CAP Ibrutinib (Imbruvica) 140 Mg Cap 4 CAP PO DAILY Pantoprazole (Pantoprazole) 40 Mg Tab 40 MG PO DAILY Days 30 TAB Tiotropium Inh (Spiriva Handihaler) 18 Mcg Cap 18 MCG INH DAILY Days 30 CAP Discontinued Medications: Hydrocodone-Acetaminophen (Lortab) 5-325 Mg Tab 1 TAB PO Q6H PRN PAIN #20 TAB Nitrofurantoin Monohydrate Macrocrystals (Macrobid) 100 Mg Cap 100 MG PO BID Infection #20 CAP Warfarin (Coumadin) 2.5 Mg Tab 2.5 MG PO DAILY@16 #30 TAB Ariadna Fitch MD Jul 19, 2016 13:26
--- NOTE | 2016-07-19 18:33 | HHI.DS ---
Discharge Summary Admission Date Jul 16, 2016 at 15:51 Discharge Date: Jul 19, 2016 Admitting Diagnosis weakness (1) Acute ischemic left MCA stroke ICD Code: I63.512 Diagnosis: Principal (2) Warfarin-induced coagulopathy ICD Code: T45.511A Diagnosis: Principal (3) Low back pain with right-sided sciatica ICD Code: M54.41 Diagnosis: Principal (4) Weakness ICD Code: R53.1 Diagnosis: Principal Procedures none Brief History - From Admission This is a pleasant 75-year-old female who is here with her . They're from [place]. Unfortunately last month she suffered a right MCA stroke with left-sided weakness. She has atrial fibrillation. She was placed on Coumadin. This is being managed by Dr. Lainez. She was discharged from [facility] about a week ago and at that time she could walk with her 's help as per the . However the patient has been developing pain in the back of her right thigh as well as her right lower back which is typical for sciatica pain. She's gotten weaker over the past week. Her notes that also her speech seems to have gotten a little bit worse over the past week. Her INR was supratherapeutic this week but trending down. She was sent to the ER last night by Dr. Lainez. Head CT revealed the evolving stroke with abnormal edema in the right frontal lobe and basal ganglia with a stable 5 mm area of high density in the right basal ganglia that may represent a small area of hemorrhage with a stable 2 mm [id number] midline shift. Her INR in the emergency department was 3.2. She received vitamin K. She has had no new neurologic changes. She has been seen by Dr. Snow of neurology and it is recommended that she have a repeat head CT in the morning and that her Coumadin can be resumed when INR is less than 1.8. MRI of the lumbar spine has been ordered for evaluation of the sciatica. On PT evaluation today she was weak and unable to stand. The patient and her are aware she will likely need more physical therapy. Unfortunately they had planned on returning back to their home state of [place] within the next several days. The patient normally takes oxycodone for pain but states that it can make her somewhat sleepy at times. CBC/BMP: 07/19/16 0530 07/19/16 0530 Significant Findings Laboratory Tests Test 07/17/16 07/18/16 07/19/16 05:55 05:30 05:30 Prothrombin Time 27.6 SEC 26.5 SEC 19.8 SEC (9.8-11.6) (9.8-11.6) (9.8-11.6) Red Blood Count 3.29 MIL/MM3 (4.00-5.30) Hemoglobin 9.5 GM/DL (11.6-15.3) Hematocrit 29.4 % (35.0-46.0) Platelet Count 144 TH/MM3 (150-450) Blood Urea Nitrogen 31 MG/DL (7-18) Creatinine 1.20 MG/DL (0.50-1.00) Estimat Glomerular Filtration 44 ML/MIN (>89) Rate Random Glucose 116 MG/DL (74-106) Imaging Last Impressions Head CT 07/16/16 0600 Signed Impressions: Service Date/Time: Saturday, July 16, 2016 07:59 - CONCLUSION: Stable head CT. There is unchanged edema in the right frontal lobe and basal ganglia representing change related to evolving infarct. The small focus of high density in the right basal ganglia is stable and could represent normal brain parenchyma versus subtle blood products. There is also unchanged 2 mm of [id number] midline shift. Denys Ramirez MD Lumbar Spine MRI 07/16/16 0000 Signed Impressions: Service Date/Time: Saturday, July 16, 2016 10:32 - CONCLUSION: Dextroscoliosis with multilevel degenerative change. There is severe right neural foraminal stenosis at L5-S1 secondary to either a right foraminal osteophyte or disc herniation. At L4-L5 there is mild spinal canal stenosis. Please see above for detailed description of each level. Denys Ramirez MD Hip MRI 07/16/16 0000 Signed Impressions: Service Date/Time: Saturday, July 16, 2016 10:10 - CONCLUSION: Mild right hip joint osteoarthritis. No acute finding is identified. Denys Ramirez MD Tibia/Fibula X-Ray 07/15/16 0657 Signed Impressions: Service Date/Time: Friday, July 15, 2016 07:04 - CONCLUSION: No acute abnormality is identified. Denys Ramirez MD PE at Discharge GENERAL: Pleasant elderly well-developed well-nourished patient in no apparent distress sitting in recliner. HEAD: Atraumatic. Normocephalic. EYES: No scleral icterus. RESPIRATORY: No accessory muscle use. RR normal. MUSCULOSKELETAL: No lower extremity edema bilaterally. NEUROLOGICAL: Awake and alert.Normal speech. Ambulates with walker. PSYCHIATRIC: Appropriate mood and affect; insight and judgment normal. Pt update on day of discharge I was made aware by immigration case worker and AUDIO VIDEO TECHNICIAN that the patient required 2 person assist this morning, but upon evaluation of the patient the patient's states it was because they were trying to lift the patient under her arms. The patient's demonstrates how he assists his in standing up and ambulating. Hospital Course Mrs. Rodriguez suffered from a right MCA stroke 1 month ago with left-sided weakness. She has atrial fibrillation and was placed on Coumadin. This is being managed by Dr. Lainez. Patient initially did well after being discharged from [facility] but then she developed sciatic pain on the right side and has been having difficulty ambulating and has had increasing weakness as well as some worsening speech over the past week. Head CT revealed the evolving stroke with abnormal edema in the right frontal lobe and basal ganglia with a stable 5 mm area of high density in the right basal ganglia that may represent a small area of hemorrhage with a stable 2 mm right- to-left midline shift. Dr. Snow evaluated the patient in the hospital and recommended repeat CT which was stable. The patient's INR was supratherapeutic prior to arrival in the ED and was noted to be 3.2 on arrival. She received vitamin K. Dr. Snow recommended restarting Coumadin when INR is less than 1.8. Today's INR is 1.7. Patient will be restarted on Coumadin at a low dose of 1 mg by mouth daily. Patient is noted to have anemia which is chronic upon review of records. She additionally has stage III chronic kidney disease which has remained relatively stable. Patient was continued on Imbruvica for Mantle cell lymphoma per oncologist despite increased risk of bleeding with coumadin. MRI L-spine showed dextroscoliosis with multilevel degenerative change and severe right neural foraminal stenosis at L5-S1 secondary to either a right foraminal osteophyte or disc herniation along with mild spinal canal stenosis at L4-L5. Hip imaging revealed OA. Patient was treated with Max, Flexeril, gabapentin for sciatic pain. Physical therapy worked with the patient and balance improved. There were difficulties regarding discharge. Patient requires speech therapy, occupational therapy, and physical therapy. Patient [place] from out of [place] and was unable to get placement in [facility]. The patient's initially wanted to drive the patient back to [place], but it was felt that this would be unsafe as the patient has sciatic pain and would require assistance in and out of the car. Case management then looked into SNF placement after report of 2 person assist needed this morning, but upon our evaluation of the patient, the demonstrated he was able to alone assist the patient in getting up from chair and ambulating. The patient was able to walk with a walker and turn maintaining balance and return to bed. Home health care nursing and therapy has been ordered for the patient while staying in local home. Patient already has DME at home. The is going to call his daughter to fly down from [place] to assist with driving back to [place]. Dr. Morelos was called and made aware the patient will be going home with home health care. Dr. Morelos will be monitoring INR. Patient is to follow-up with Dr. Lainez in 2 weeks if they are still in town. Pt Condition on Discharge: Stable Discharge Disposition: Disch w/ Home Health Serv Discharge Time: > 30 minutes (documentation, discharge coordination) Discharge Instructions DIET: Follow Instructions for: Heart Healthy Diet, Gastroesophageal Reflux Activities you can perform: See Additionl Instruction Activities to Avoid: Driving Other Activity Instructions: use walker when ambulating with assistance Follow up Referrals: Home Health - Today Neurology - 2 Weeks with Jude Lainez MD PCP Follow-up - 2-3 Days with Nikolai Morelos MD New Orders: PT/INR - 07/20/16 PT/INR - 07/22/16 PT/INR - 07/24/16 PT/INR - 07/26/16 PT/INR - 07/28/16 PT/INR - 07/30/16 PT/INR - 08/01/16 New Medications: Warfarin (Warfarin) 1 Mg Tab 1 MG PO DAILY Stroke Prevention #30 Ref 0 TAB Continued Medications: Albuterol 18 GM Inh (Ventolin Hfa 18 GM Inh) 90 Mcg/Act Aer 1 PUFF INH Q4H PRN SHORTNESS OF BREATH Days 30 INHALER Amlodipine (Norvasc) 10 Mg Tab 10 MG PO DAILY Days 30 TAB Artificial Tear Opth Ointment (Akwa Tears Opth Ointment) 2-15-83% Oint 1 APPLIC EACH EYE Q12HR #1 TUBE Atorvastatin (Lipitor) 10 Mg Tab 10 MG PO HS Days 30 TAB Budesonide-Formoterol Inh (Symbicort Inh) 160-4.5 Mcg/Act Aero 2 PUFF INH BID Days 30 INHALER Gabapentin (Neurontin) 300 Mg Cap 300 MG PO HS Days 30 CAP Ibrutinib (Imbruvica) 140 Mg Cap 4 CAP PO DAILY Pantoprazole (Pantoprazole) 40 Mg Tab 40 MG PO DAILY Days 30 TAB Tiotropium Inh (Spiriva Handihaler) 18 Mcg Cap 18 MCG INH DAILY Days 30 CAP Discontinued Medications: Hydrocodone-Acetaminophen (Lortab) 5-325 Mg Tab 1 TAB PO Q6H PRN PAIN #20 TAB Nitrofurantoin Monohydrate Macrocrystals (Macrobid) 100 Mg Cap 100 MG PO BID Infection #20 CAP Warfarin (Coumadin) 2.5 Mg Tab 2.5 MG PO DAILY@16 #30 TAB Additional Information Written by Lilliana Oliver PA-C acting as scribe for Dr. Fitch on 07/19/16 at 1130. The documentation accurately reflects the work and decisions performed face-to- face by ar Dr. Fitch on 07/19/16 at 1130. Lilliana Oliver Jul 19, 2016 18:33
== END 2016-07-19 13:47 | disposition home health service (06) | DRG 64 ==
LOC: PHED 06:19 → PHEDA 09:14 → PH3A 10:24 → OBSVTOIN 07-16 15:51
PROVIDERS: ADMIT Family Medicine; ATTEND Family Medicine
DX: I63.512 Cerebral infarction due to unspecified occlusion or stenosis of left middle cerebral artery (principal); G93.6 Cerebral edema; D61.818 Other pancytopenia; E11.22 Type 2 diabetes mellitus with diabetic chronic kidney disease; C83.10 Mantle cell lymphoma, unspecified site; N18.3 Chronic kidney disease, stage 3 (moderate); G81.94 Hemiplegia, unspecified affecting left nondominant side; I48.2 Chronic atrial fibrillation; I12.9 Hypertensive chronic kidney disease with stage 1 through stage 4 chronic kidney disease, or unspecified chronic kidney disease; M54.40 Lumbago with sciatica, unspecified side; R79.1 Abnormal coagulation profile; T45.515A Adverse effect of anticoagulants, initial encounter; M48.06 Spinal stenosis, lumbar region; E78.5 Hyperlipidemia, unspecified; J44.9 Chronic obstructive pulmonary disease, unspecified; M41.9 Scoliosis, unspecified; H91.90 Unspecified hearing loss, unspecified ear; Z79.01 Long term (current) use of anticoagulants; Z87.891 Personal history of nicotine dependence
CPT/HCPCS: 70450; 72148; 73590; 73721; 74177; 80048; 81001; 85025; 85027; 85610; G0378; G8987-GP; G8988-GP; J7030; J7512; Q9967